=== PATIENT | female | born 1970 | race Caucasian/White ===

== ENCOUNTER → 2022-09-15 08:35 | Outpatient (CLI) | payer OTHER, BC, SELFPAY ==
--- NOTE | ~2022-09-15 | MR_ITS ---
EXAMINATION: MR foot LT wo con DATE: 09/15/2022 09:21 INDICATION: Lateral sided left foot pain and swelling at the second toe TECHNIQUE: Magnetic resonance imaging (MRI) of the left fore/mid foot was performed without intraveno us contrast. Sequences included sagittal T1-weighted FSE, sagittal fluid sensitive FSE STIR, coronal PD-weighted FS FSE, coronal T1-weighted FSE, axial PD-weighted FS FSE, and axial PD-weighted FSE. COMPARISON: None FINDINGS: 35 degree hallux valgus. There appears to be pes planus however specificity is decreased on nonweight bearing imaging. No fracture, stress reaction or pathologic marrow replacing process. Polyarticular o steoarthritis, moderate severity at the second and third tarsal metatarsal joint, mild to moderate se verity at the first metatarsophalangeal joint and mild at the remaining tarsal metatarsal and multipl e interphalangeal joints. Couple likely associated small ganglion cysts the soft tissues plantar to t he second tarsal metatarsal joint. There is prominent soft tissue edema surrounding the second toe an d extending proximally about the distal aspect of the second metatarsal. There is a small joint effus ion at the second metatarsophalangeal joint along with mild thickening and increased signal of the me dial and lateral collateral ligament complex at the second metatarsophalangeal joint. No discrete flu id signal intensity tear of the collateral ligaments and differential would include either partial te ars or more likely other inflammatory process given the bilaterality and additional surrounding infla mmatory changes. This includes increased fluid signal consistent with tenosynovitis extending along t he flexor tendon sheath of the second toe. The flexor and extensor tendons appear otherwise normal. T here is additional soft tissue swelling with subcutaneous edema along the dorsolateral aspect of the mid and forefoot. There is suggestion of a small erosion at the lateral base of the fifth metatarsal. IMPRESSION: 1. Inflammatory changes centered at the second metatarsophalangeal joint including joint effusion, th ickening and increased signal of the medial and lateral collateral ligament complexes and tenosynovit is along the second flexor tendon sheath. Would favor a nonspecific infiltrate etiology which could b e infectious, rheumatic or related to crystal deposition diseases such as gout. 2. Suggestion of a small erosion at the lateral base of the fifth metatarsal with additional surround ing likely reactive edema suggesting inflammatory process with similar differential. Given the oligo articular distribution would favor gout. 3. Mild to moderate polyarticular osteoarthritis in the left fore and midfoot. Reviewed, dictated and finalized at location A. IMPRESSION: 1. Inflammatory changes centered at the second metatarsophalangeal joint includ ing joint effusion, thickening and increased signal of the medial and lateral c ollateral ligament complexes and tenosynovitis along the second flexor tendon s caleb. Would favor a nonspecific infiltrate etiology which could be infectious, rheumatic or related to crystal deposition diseases such as gout. 2. Suggestion of a small erosion at the lateral base of the fifth metatarsal wi th additional surrounding likely reactive edema suggesting inflammatory process with similar differential. Given the oligo articular distribution would favor gout. 3. Mild to moderate polyarticular osteoarthritis in the left fore and midfoot.
== END ==
PROVIDERS: PCP Family Medicine; Visit Provider Podiatrist Foot & Ankle Surgery
DX: M19.072 Primary osteoarthritis, left ankle and foot (principal)
CPT/HCPCS: 73718

== ENCOUNTER 2022-10-24 20:34 | Emergency (ER) | payer OTHER, BC, SELFPAY ==
[2022-10-24] VITALS (7 sets, daily range): BP systolic 110–162; BP diastolic 72–101; PULSE 61–77; RESP 16–18; TEMP 36.4; O2SAT 95–98
--- NOTE | ~2022-10-24 | CT_ITS ---
Non-contrast Head CT History: Headache Technique: Axial non-contrast imaging of the brain was performed. Dose reduction technique was used on this scan by utilizing automated exposure control and iterative reconstruction technique. The dose -length product (DLP) was 605.33 mGy-cm. Findings: There is no evidence of intracranial hemorrhage, mass lesion, or acute infarct. Brain par enchyma appears normal. The ventricles and subarachnoid spaces are normal in size. The calvarium ap pears normal. The visualized paranasal sinuses and mastoid air cells are clear. Impression: No significant abnormality seen. Reviewed, dictated and finalized at location . Impression: No significant abnormality seen.
--- NOTE | ~2022-10-24 | CT_ITS ---
Clinical Indication: Chest pain CT Scan of the Chest with Contrast: Technique: Contiguous sections were acquired throughout the chest after intravenous administration of 100 cc of Omnipaque 350. Dose reduction technique was used on this scan by utilizing automated expos ure control and iterative reconstruction technique. The dose-length product (DLP) was 777.80 mGy-cm. Findings: There is no evidence of any significant mediastinal, hilar or axillary lymphadenopathy. There is no f illing defect in the pulmonary arterial tree to suggest pulmonary embolus. There is no evidence of ao rtic dissection or aneurysm. There is no evidence of pleural or pericardial effusion. The lungs are clear. No pulmonary nodules or infiltrates are noted. Images through the upper abdomen reveal evidence of prior splenectomy. Impression: No evidence of pulmonary embolus, aortic dissection, or aortic aneurysm. Clear lungs. Reviewed, dictated and finalized at [facility]. Impression: No evidence of pulmonary embolus, aortic dissection, or aortic aneurysm. Clear lungs.
--- NOTE | 2022-10-24 20:39 | ED.CHESTPAIN ---
HPI - Chest Pain General Chief Complaint: Chest Pain Stated Complaint: Chest Pain Source: patient Mode of arrival: ambulatory Limitations: no limitations History of Present Illness HPI narrative: Patient is a 52-year-old female with chest pain that started today 30 minutes prior to visit. Her pain is mid substernal in nature and sharp with a pressure-like which radiates to the jaw. She also has shortness of breath and headache. She has family history with early coronary disease and at 59 years of age. There is also brain bleeds early in life. MD complaint: chest pain, chest heaviness and chest discomfort Onset (ago): minute(s) (30) Timing of current episode: constant Prior episodes: No Onset: during rest Pain location: substernal Pain radiation: left arm and jaw/teeth Severity: moderate Pain scale (0-10): 8 Quality: tightness, heaviness and sharp Relieving factors: nothing Exacerbating factors: nothing Treatment prior to arrival: none Risk Factors Coronary artery disease risk factors: diabetes, hyperlipidemia and family history of CAD before age 50 Related Data On Oral Contraceptives: No Home Medications Medication Instructions Recorded Confirmed alprazolam 0.5 mg tablet 0.5 mg 10/24/22 atorvastatin 10 mg tablet 10 mg 10/24/22 celecoxib 100 mg capsule 100 mg 10/24/22 dulaglutide 1.5 mg/0.5 mL 1.5 subcut 10/24/22 subcutaneous pen injector (Trulicity) ixekizumab 80 mg/mL subcutaneous 80 mg subcut 10/24/22 auto-injector (Taltz Autoinjector) levothyroxine 50 mcg tablet 50 mcg 10/24/22 (Synthroid) levothyroxine 75 mcg tablet 75 mcg 10/24/22 (Synthroid) Allergies Allergy/AdvReac Type Severity Reaction Status Date / Time No Known Allergies Allergy Verified 10/24/22 21:27 Review of Systems Review of Systems: All systems reviewed & are unremarkable except as noted in HPI and below Constitutional: Constitutional: Reports no additional constitutional complaints Eyes: Eyes: Reports no additional eye complaints ENT: Reports system reviewed and no additional complaints, except as documented Cardiovascular: Cardiovascular: Reports no additional cardiovascular complaints Respiratory: Respiratory: Reports no additional respiratory complaints Gastrointestinal: Gastrointestinal: Reports no additional gastrointestinal complaints Genitourinary: Genitourinary: Reports no additional female genitourinary complaints Musculoskeletal: Musculoskeletal: Reports no additional musculoskeletal complaints Integumentary/Breasts: Skin/Breast: Reports system reviewed and no additional complaints, except as docu Neurologic: Reports system reviewed and no additional complaints, except as documented Psychiatric: Psychiatric: Reports no additional psychiatric complaints Endocrine: Endocrine: Reports no additional endocrine complaints Hematologic/Lymphatic: Hematologic/Lymphatic: Reports no additional hematologic/lymphatic complaints Allergic/Immunologic: Allergic/Immunologic: Reports no additional allergic/immunologic complaints Exam Const: General: healthy appearing Nutritional Appearance: well nourished HENMT: Head: normal to inspection Ears: external ears normal Eyes: Conjunctivae: conjunctivae normal Pupils: Equal, round and reactive pupils present Neck: Neck: normal visual inspection Chest: Chest palpation & inspection: normal inspection of the chest Resp: Effort & Inspection: normal respiratory effort Auscultation: clear to auscultation bilaterally Cardio: Rate: regular rate Rhythm: regular rhythm GI: Inspection: non-distended GI Palp: Yes Soft to palpation and No Tenderness to palpation present (GI) Auscultation: normal bowel sounds : General: Yes bladder normal to palpation Back/Spine/Pelvis: Back: no CVA tenderness Skin: General skin exam: normal color Rashes: no rashes Neuro: General: patient oriented x3 and moves all extremities Cranial nerves: Yes Nystagmus not
--- NOTE | 2022-10-24 20:46 | ECG_ITS ---
Measurements Intervals [place] Rate: 75 P: 12 IA: 157 QRS: 35 QRSD: 98 T: 48 QT: 405 QTc: 455 Interpretive Statements SINUS RHYTHM NORMAL ECG NO PREVIOUS ECG AVAILABLE FOR COMPARISON Electronically Signed On 10-25-2022 10:19:55 CDT by Sang Lee M.D.
[2022-10-24 21:29] LABS: Hemoglobin 13.7 g/dL (12.0-15.0); Mean Corpuscular HGB Conc 33.4 g/dL (32.0-36.0); Mean Corpuscular Hemoglobin 30.2 pg (27.0-31.0); Mean Corpuscular Volume 90.5 fL (78.0-102.0); Mean Platelet Volume 9.1 fl (9.2-11.8); Platelet Count Result 398 K/mm3 (150-420); Red Blood Count 4.53 M/mm3 (4.20-5.40); Red Cell Distribution Width 16.1 % (11.6-14.4); White Blood Count 15.4 K/mm3 (4.8-10.8)
[2022-10-24 21:40] LABS: Partial Thromboplastin Time 27.3 SEC (23.90-30.70); Prothrombin Time 10.8 Seconds (9.50-12.10)
[2022-10-24 21:48] LABS: Alanine Aminotransferase 42 U/L (14-59); Albumin Level 3.2 g/dL (3.4-5.0); Alkaline Phosphatase 82 U/L (46-116); Anion Gap 6 mmol/L (8-16); Aspartate Amino Transferase 19 U/L (15-37); Bilirubin,Total 0.4 mg/dL (0.00-1.00); Blood Urea Nitrogen 25 mg/dL (7-18); Calcium 8.4 mg/dL (8.5-10.1); Carbon Dioxide 29 mmol/L (21-32); Chloride 105 mmol/L (98-108); Estimated CRCL calculation 64 ml/min; Estimated Glomerular Filt Rate > 60; Glucose 113 mg/dL (70-99); Lipase 50 U/L (16-77); Magnesium 1.9 mg/dL (1.8-2.4); Osmolality Calculated 295 mOsm/kg (285-295); Potassium 3.8 mmol/L (3.5-5.1); Sodium 140 mmol/L (136-145); Total Protein 6.9 g/dL (6.4-8.2); Troponin I 4.5 ng/L (0.00-60.4)
[2022-10-24 22:06] LABS: Band Neutrophils Percent 0 % (0-6); Eosinophils Absolute Manual 0.46 K/mm3 (0.02-0.5); Eosinophils Percent Manual 3 % (1-6); Lymphocytes Absolute Manual 5.39 K/mm3 (1.1-4.5); Lymphocytes Percent Manual 35 % (18-44); Neutrophils Absolute Manual 9.54 K/mm3 (1.7-7.2); Neutrophils Percent Manual 62 % (46-73); Total Cells Counted 100
[2022-10-24 22:07] LABS: Atypical Lymphocytes Present; Giant Platelets Present; Large Platelets Present; Platelet Estimate Adequate (Adequate); Schistocytes None Seen (NORMAL); Smudge Cells PRESENT
[2022-10-24] MEDS: ACETAMINOPHEN 500 MG TABLET 1000 MG PO (22:10)
[2022-10-24 22:30] LABS: Appearance Urine Clear (Clear); Bilirubin Urine Negative (Negative); Blood Urine Trace-Intact (Negative); Color Urine Light Yellow (Yellow); Glucose Urine UA Negative (Negative); Ketones Urine Negative (Negative); Leukocyte Esterase Ur Negative LEU/UL (Negative); Nitrate Urine Negative (Negative); Protein Urine Negative (Negative); Urobilinogen Urine 0.2 mg/dL (0.2-1.0)
[2022-10-24 22:36] LABS: Add Urine Microscopic? YES; Mucus Urine Few /lpf; Squamous Epithelial Cell Urine Few /hpf (Few)
[2022-10-24 22:46] LABS: Amphetamine Screen Urine Negative (Negative); Barbiturate Screen Urine Negative (Negative); Benzodiazepines Screen Urine Positive (Negative); Cannabinoid Screen Urine Positive (Negative); Cocaine Screen Urine Negative (Negative); Methadone Screen Urine Negative (Negative); Opiate Screen Urine Negative (Negative); Phencyclidine Screen Urine Negative (Negative)
[2022-10-24 23:49] LABS: Troponin I 1126.9 ng/L (0.00-60.4)
--- NOTE | 2022-10-24 23:52 | ECG_ITS ---
Measurements Intervals [place] Rate: 72 P: 29 CT: 170 QRS: 15 QRSD: 79 T: 10 QT: 408 QTc: 448 Interpretive Statements SINUS RHYTHM ARTIFACT LIMITS INTERPRETATION NORMAL ECG COMPARED TO ECG 10/24/2022 20:40:09 NO SIGNIFICANT CHANGES Electronically Signed On 10-25-2022 10:20:29 CDT by Sang Lee M.D.
[2022-10-24] MEDS: ASPIRIN 81 MG CHEWABLE TABLET 324 MG PO (23:59)
[2022-10-25] MEDS: NITROGLYCERIN SL 0.4 MG TABLET SUBLINGUAL
[2022-10-25 00:04] VITALS: BP 139/93
[2022-10-25 00:30] VITALS: BP 133/79; PULSE 68; O2SAT 96
[2022-10-25 01:00] VITALS: BP 125/84; PULSE 64; RESP 16; O2SAT 96
[2022-10-25] MEDS: ENOXAPARIN 100 MG/ML SYRINGE 80 MG SUB-Q (01:22)
[2022-10-25 02:07] VITALS: BP 142/89; PULSE 61; RESP 18; O2SAT 97
--- NOTE | 2022-10-25 02:36 | PC.NURSE ---
0236-EMS TRANSPORT SETUP. [employer] OPERATOR CONTACTED [facility]. 0227- REPORT CALLED TO HORACE COHEN ([phone]). TRANSPORT CAN BE SETUP.
[2022-10-25 03:02] VITALS: BP 148/93; PULSE 62; RESP 16
== END 2022-10-25 03:16 | disposition home or self-care (01) ==
PROVIDERS: Emergency Provider Emergency Medicine; PCP Family Medicine
DX: R07.89 Other chest pain (principal); G44.89 Other headache syndrome; E11.9 Type 2 diabetes mellitus without complications; E78.5 Hyperlipidemia, unspecified; Z79.899 Other long term (current) drug therapy
CPT/HCPCS: 36415; 70450; 71275; 80053; 80307; 81001; 83690; 83735; 84484; 85025; 85610; 85730; 93005; 96372; 99284; A9270; J1650; Q9967

== ENCOUNTER 2022-10-25 04:11 | Observation (INO) | payer OTHER, BC, SELFPAY ==
[2022-10-25] VITALS (28 sets, daily range): BP systolic 104–184; BP diastolic 66–98; PULSE 62–84; RESP 14–22; TEMP 35.8–37.6; O2SAT 90–100; BMI 31.3
--- NOTE | 2022-10-25 | ECHO_ITS ---
Patient Info Name: Lyn Medina Age: 52 years : 1970 Gender: Female Ht: 62 in Wt: 171 lbs BSA: 1.87 m2 HR: 68 bpm BP: 153 / 89 mmHg Heart Rhythm: Sinus Rhythm Technical Quality: Fair Exam Date: 10/25/2022 2:47 PM Exam Location: [facility] Patient Status: Outpatient Admit Date: 10/25/2022 Staff Ordering Physician: Ana Cristina Noe DO Lapping Machine Tender: Kate Watts RDCS Attending Provider: Ana Cristina Noe DO Referring Physician: Kusum HORN; Exam Type: CA echo doppler color flow Study Info Indications - STEMI Complete two-dimensional, color flow and Doppler transthoracic echocardiogram is performed. Summary 1. Complete two-dimensional, color flow and Doppler transthoracic echocardiogram is performed. 2. Mild left ventricular hypertrophy with normal systolic function and grade 1 diastolic noncompliance. 3. No valvular dysfunction. 4. No pericardial effusion. Left Ventricle Left ventricular chamber dimension is normal. Left ventricular systolic function is normal, estimated at 50-55%. There is mild concentric increased left ventricular wall thickness. The left ventricular diastolic function is grade I diastolic dysfunction. Right Ventricle Right ventricular chamber dimension is normal. Left Atria Left atrial chamber dimension is normal. Right Atria Right atrial chamber dimension is normal. Aortic Valve The aortic valve is normal. Pulmonic Valve The pulmonic valve is not well visualized. Mitral Valve The mitral valve has normal leaflets. Tricuspid Valve The tricuspid valve leaflets are normal. Pericardium/Pleural The pericardium appears normal. Aorta The aortic root size at the sinus of Valsalva is normal. Left Ventricular Outflow Tract Name Value Normal LVOT 2D LVOT Diameter 2.0 cm LVOT Doppler LVOT Peak Gradient 3 mmHg LVOT Mean Gradient 2 mmHg LVOT VTI 17 cm LVOT VTI/AV VTI Ratio 0.6 LVOT Stroke Volume 50 ml LVOT CO 3.6 l/min LVOT CI 1.9 l/min/m2 Pulmonic Valve Name Value Normal RVOT Doppler RVOT Peak Gradient 1 mmHg PV Doppler PV Peak Gradient 3 mmHg Mitral Valve Name Value Normal MV Doppler MV Decel [place] 393 cm/s2 MV PHT 54 ms MV Area (PHT) 4.1 cm2 4.0-5.0 MV Diastolic Function
--- NOTE | 2022-10-25 04:00 | ADMGEN ---
This patient, Lyn Medina, was admitted to IMU Room 210-01. Patient/family oriented to hospital policies and general routines including ID bracelet, bed and alarms, visiting hours, pain management, procedures, bathroom and other care routines, personal items, smoking policy, room service/diet, and visiting hours. Information on how to activate the Rapid Response Team has been discussed. Patient/Family are encouraged to report perceived risks to care and to ask questions if they do not understand what they are told or what they should do.
--- NOTE | 2022-10-25 04:11 | ECG_ITS ---
Measurements Intervals [place] Rate: 60 P: 6 WV: 173 QRS: 12 QRSD: 93 T: 8 QT: 442 QTc: 444 Interpretive Statements SINUS RHYTHM NORMAL ECG COMPARED TO ECG 10/24/2022 23:57:57 NO SIGNIFICANT CHANGES Electronically Signed On 10-25-2022 10:27:49 CDT by Sang Lee M.D.
--- NOTE | 2022-10-25 04:24 | PM.IMHP ---
H&P: HPI History of Present Illness Date/Time: 10/25/22 04:24 Chief Complaint: Chest pain Narrative: 52-year-old female with a past medical history of psoriasis, type 2 diabetes mellitus, GERD hypothyroidism, obesity and anxiety who presented to the ER at [facility] due to chest pain. The patient reports that she had gotten up to clean the kitchen after dinner. When she is walking in the kitchen she suddenly developed pain that started in the top of her head face and jaw head extended down her neck into her central chest. She reported she felt as if something was sitting on her chest. The pain was an 8/10 in intensity and had no eliciting or relieving factors. The pain lasted for approximately 30 minutes. She denied any radiation of the pain into her shoulders arms or back. She reported that she felt the pain deeply and her jaw and teeth as well as her neck and chest. She has a significant family history of premature coronary artery disease with 1 brother who also had diabetes and heart disease and of sudden cardiac at age 59. She has another brother who has ischemic cardiomyopathy with an EF of 15% who is currently 59 years old. She reports that her cholesterol has historically been low at 110 in that she is on a statin just for prophylactic purposes. She had a stress test many years ago at [place] that was reportedly negative. She re and her have been going to the gym and working out relatively regularly. She is on a lower carbohydrate diet eating 45 carbs per meal and 15 carbs with each snack. She has lost approximately 20 lb with these dietary changes. She does report that she occasionally snores when she has congestion. She does occasionally fall asleep while watching TV and is fatigued a lot of the mornings but does take several medications to help her fall asleep. 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 EKG at the outside ER did not demonstrate any changes. CT troponin initially at the outside ER was 4.6 with repeat greater than a 1000. She told me that her chest pain had resolved by time she got to the ER but evidently she had reported some chest pain to the ER staff because she received nitro at which time her chest pain resolved. She was transferred to our facility for evaluation by Cardiology. She was received 1 dose of Lovenox 1 milligram/kilogram at the outside ER and a full-dose aspirin. The patient reports that her blood pressure was unusually high at the outside ER 162/101. She reports that her blood pressures at home usually are in the 110s to 120s range over 60s to 70s. She does follow with a primary care physician in [place] and Dr. Marcus. Review of Systems Review of Systems: 12 systems were reviewed with pertinent positives and negatives per HPI. Except as documented in the HPI, all other systems were reviewed and are negative. 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
[2022-10-25 04:35] LABS: Hematocrit 40.5 % (37.0-47.0); Hemoglobin 13.3 g/dL (12.0-15.0); Mean Corpuscular HGB Conc 32.8 g/dl (32-36); Mean Corpuscular Volume 91.4 fl (80-100); Platelet Count Result 362 k/mm3 (150-375); Red Blood Count 4.43 M/mm3 (4.2-5.4); Red Cell Distribution Width 16.5 % (11.5-14.5); White Blood Count 15.1 K/mm3 (4.5-10.0)
[2022-10-25] MEDS: SODIUM CHLORIDE 0.9% IV 1,000 ML 100 ML IV CONT ×2 (04:43→19:35)
[2022-10-25 04:45] LABS: Anion Gap 0 mmol/L (8-16); Blood Urea Nitrogen 22 mg/dL (7-17); Calcium 8.3 mg/dL (8.4-10.2); Carbon Dioxide 30 mmol/L (22-30); Chloride 103 mmol/L (98-107); Estimated CRCL calculation 78 ml/min; Estimated Glomerular Filt Rate > 60; Glucose 87 mg/dL (65-110); Potassium 3.8 mmol/L (3.4-5.0); Sodium 133 mmol/L (137-145)
[2022-10-25 05:04] LABS: Band Neutrophils Percent 1 % (0-6); Eosinophils Absolute Manual 1.05 K/mm3 (0.02-0.5); Eosinophils Percent Manual 7 % (0-4); Lymphocytes Absolute Manual 3.32 K/mm3 (1.1-4.5); Metamyelocytes Percent 1 %; Monocytes Percent Manual 6 % (3-9); Myelocytes Percent 1 %; Neutrophils Absolute Manual 9.51 K/mm3 (1.7-7.2); Neutrophils Percent Manual 62 % (46-73); Total Cells Counted 100
[2022-10-25 05:05] LABS: Target Cells 1+ (NORMAL)
[2022-10-25 05:06] LABS: Atypical Lymphocytes Present; Schistocytes None Seen (NORMAL); Smudge Cells PRESENT
[2022-10-25] MEDS: ONDANSETRON INJ 4 MG/2 ML VIAL IV PUSH (08:11)
--- NOTE | 2022-10-25 08:34 | PM.CNCAR ---
Assessment and Plan Assessment and plan (1) Non-STEMI (non-ST elevated myocardial infarction): Code(s): I21.4 - Non-ST elevation (NSTEMI) myocardial infarction Status: Acute Plan This is a 52-year-old lady with history of diabetes who presents to the hospital with rather atypical sounding symptoms and that her pain begins a frontal headache and then radiates down into the throat and into the chest. Her electrocardiogram looks unremarkable but she has had a significant troponin rise. In this setting angiography is recommended and indicated. The procedure in terms of the catheterization risks and details have been explained to the patient and she wishes to proceed. This will be done later today further recommendations of course will be pending those findings Andrea Chaudhry MD [facility] History of Present Illness History of Present Illness Consult date/time: 10/25/22 08:34 Reason For Visit: NSTEMI Narrative: This is a 52-year-old lady I am seeing this morning at the request of the hospitalist because of chest pain and elevated troponin levels. She is not known to me prior to this encounter and she is not known to have heart disease prior to this admission. She states she began to experience episodes of pain yesterday evening while she was at her home. Her history is a bit unusual in that this pain began as a frontal headache and then radiated down into the jaw/neck and down into the substernal region from there. There was mild shortness of breath associated with this but no other symptomatology. She became concerned about the symptoms because of a prevalent family history of coronary disease and went to the emergency room in [place] to be evaluated. Altogether the she thinks the symptoms lasted about 20-30 minutes and then subsided. She did have a elevated troponin and that hospital's emergency room but a normal appearing electrocardiogram. She was transferred here for further evaluation and management. Troponin levels here have been 2.5 and 3.0. She has 3 normal electrocardiograms in the chart and has no other symptoms or complaints at this time. Her chest pain has subsided as mentioned above she does describe a persistent mild frontal headache. She has not had any exertional symptomatology to report she does not exercise in any structured fashion but does lead active lifestyle and does not notice exertional symptoms such as chest pain dyspnea orthopnea PND or edema. She states that her father and 1 of her brothers have passed prior to the age of 55 of myocardial infarctions. Review of Systems Constitutional: Constitutional: Reports no additional constitutional complaints Eyes: Eyes: Reports no additional eye complaints ENT: Reports system reviewed and no additional complaints, except as documented Cardiovascular: Cardiovascular: Reports as per HPI Respiratory: Respiratory: Reports no additional respiratory complaints Gastrointestinal: Gastrointestinal: Reports nausea Musculoskeletal: Musculoskeletal: Reports no additional musculoskeletal complaints Integumentary/Breasts: Skin/Breast: Reports system reviewed and no additional complaints, except as docu Neurologic: Reports system reviewed and no additional complaints, except as documented Endocrine: Endocrine: Reports no additional endocrine complaints Hematologic/Lymphatic: Hematologic/Lymphatic: Reports no additional hematologic/lymphatic complaints Allergic/Immunologic: Allergic/Immunologic: Reports no additional allergic/immunologic complaints PMFSH Past Medical History Medical History (Updated 10/25/22 @ 08:24 by Ana Cristina Noe DO) Anxiety Depression Hypothyroidism Insomnia Obesity Osteoarthritis Psoriasis Type 2 diabetes mellitus The patient reports that her A1c was 5.7 at her most recent doctor visit Surgical History Surgical History (Updated 10/25/22 @ 08:20 by Ana Cristina Noe DO) History of endometrial ablation History o
--- NOTE | 2022-10-25 08:53 | WPDMODSED ---
Moderate Sedation Note-Pt Data Patient Data Diagnosis: acute coronary syndrome/ non ST elevation [place] Present Complaint: neck and chest pain Procedure to be performed/Plan: left heart catheterization Allergies Allergy/AdvReac Type Severity Reaction Status Date / Time No Known Allergies Allergy Verified 10/24/22 21:27 Home Medications Medication Instructions Recorded Confirmed Type atorvastatin 10 mg tablet 10 mg PO DAILY 10/24/22 10/25/22 History celecoxib 100 mg capsule 100 mg PO BID 10/24/22 10/25/22 History dulaglutide 1.5 mg/0.5 mL 1.5 mg subcut WEEKLY 10/24/22 10/25/22 History subcutaneous pen injector (Trulicity) ixekizumab 80 mg/mL subcutaneous 80 mg subcut MONTHLY 10/24/22 10/25/22 History auto-injector (Taltz Autoinjector) levothyroxine 50 mcg tablet 50 mcg PO EVERY OTHER DAY 10/24/22 10/25/22 History (Synthroid) levothyroxine 75 mcg tablet 75 mcg PO EVERY OTHER DAY 10/24/22 10/25/22 History (Synthroid) Calcium + Vitamin D 600 mg PO DAILY 10/25/22 10/25/22 History alprazolam 1 mg tablet 1 mg PO BID PRN Anxiety 10/25/22 10/25/22 History esomeprazole magnesium 40 mg 40 mg PO HS 10/25/22 10/25/22 History capsule,delayed release fluoxetine 40 mg capsule 80 mg PO HS 10/25/22 10/25/22 History magnesium oxide-magnesium amino 1 cap PO DAILY 10/25/22 10/25/22 History acid chelate 300 mg capsule trazodone 100 mg tablet 50 mg PO HS 10/25/22 10/25/22 History Current Medications: Active Medications Acetaminophen (Acetaminophen 325 Mg Tablet) 650 mg PO Q4H PRN PRN Reason: Mild Pain (1-3) or Fever Al Hydrox/Mg Hydrox/Simethicone (Mag Hydrox/Al Hydrox/Simeth 30 Ml Udc) 30 ml PO QID PRN PRN Reason: Dyspepsia Alprazolam (Alprazolam (*Crx) 0.5 Mg Tablet) 1 mg PO BID PRN PRN Reason: Anxiety Aspirin (Aspirin 81 Mg Enteric Tablet) 81 mg PO QAM OMERO Atorvastatin Calcium (Atorvastatin 10 Mg Tablet) 10 mg PO DAILY OMERO Calcium Carbonate (Calcium/Vitamin D 500 Mg Tablet) 500 mg PO QAM ON LICENSE OF [facility] Dextrose (Dextrose 50% 25 Gm/50 Ml Syringe) 12.5 gm IV PUSH PRN PRN; Protocol PRN Reason: Hypoglycemia Fluoxetine HCl (Fluoxetine Hcl 20 Mg Capsule) 80 mg PO HS ON LICENSE OF [facility] Glucagon (Glucagon For Inj 1 Mg Vial) 1 mg IM PRN PRN; Protocol PRN Reason: Hypoglycemia Glucose (Glucose Oral Gel 15 Gm Of Glucse In 37.5 Gm Tube) 15 gm PO PRN PRN; Protocol PRN Reason: Hypoglycemia Sodium Chloride (Normal Saline Iv) 1,000 mls @ 100 mls/hr IV CONT .Q10H ON LICENSE OF [facility] Last Admin: 10/25/22 04:43 Dose: 100 mls/hr Dextrose (Dextrose 5% 1,000 Ml) 1,000 mls @ 100 mls/hr IVPB PRN PRN; Protocol PRN Reason: Hypoglycemia Insulin Aspart (Insulin Aspart (*Bkc) 100 Units/Ml) 2 - 5 units SUB-Q Q6HR OMERO; Protocol Last Admin: 10/25/22 06:20 Dose: Not Given Levothyroxine Sodium (Levothyroxine Sodium 75 Mcg Tablet) 75 mcg PO Q48H ON LICENSE OF [facility] Levothyroxine Sodium (Levothyroxine Sodium 50 Mcg Tablet) 50 mcg PO Q48H ON LICENSE OF [facility] Metoprolol Succinate (Metoprolol Succinate Ext Rel 25 Mg Tabcr) 25 mg PO QAM ON LICENSE OF [facility] Miscellaneous Information (Trazodone 50mg Order, Comments Say She Takes 25mg. Please Clarify Dosage) 1 each XX CLARIFY ON LICENSE OF [facility] Stop: 11/24/22 00:00 Miscellaneous Information (Magnesium Oxide-Mg Aa Chelate 300 Mg Capsule Is Nonformulary. Hold While Hospitalized?) 1 each XX CLARIFY ON LICENSE OF [facility] Stop: 11/24/22 00:00 Non-Formulary Medication (Magnesium Oxide-Mg Aa Chelate) 1 cap PO DAILY ON LICENSE OF [facility] Stop: 11/24/22 08:59 Ondansetron HCl (Ondansetron Inj 4 Mg/2 Ml Vial) 4 mg IV PUSH Q6H PRN PRN Reason: Nausea And Vomiting Last Admin: 10/25/22 08:11 Dose: 4 mg Pantoprazole Sodium (Pantoprazole 40 Mg Tablet) 40 mg PO HS ON LICENSE OF [facility] Perflutren Lipid Microsphere (Perflutren Lipid Microspheres 1.5 Ml Vial Diluted To 10 Ml Total Volume) 0 ml IV PUSH ONCE PRN; Protocol PRN Reason: adequate visualization Stop: 10/27/22 08:20 Trazodone HCl (Trazodone Hcl 50 Mg Tablet) 50 mg PO [facility] Sedation/Anesthesia: No previous sedation/anesthesia problems (including family history). LISA Bowie
[2022-10-25] MEDS: ASPIRIN 81 MG ENTERIC TABLET PO (08:57)
[2022-10-25] MEDS: ATORVASTATIN 10 MG TABLET PO (09:04)
[2022-10-25] MEDS: METOPROLOL SUCCINATE EXT REL 25 MG TABCR PO (09:04)
--- NOTE | 2022-10-25 11:27 | WPDCARDPROC ---
Cardiac Cath Procedure Note Date of procedure:: 10/25/22 Performing physician:: Andrea Chaudhry MD Indication:: Acute coronary syndrome Brief clinical history:: this is a 52-year-old patient without previous history of heart disease she does have history of diabetes and family history of ischemic heart disease. She had an episode of symptoms prompting admission which initiated with a bifrontal headache followed by throat and then central chest pain. Electrocardiograms have been normal however troponin levels are moderately elevated but flat. Procedure Procedure performed:: Coronary angiogram left ventriculogram Sedation/Medication given:: fentanyl 50 mg Versed 2 mg case start time 11:05 a.m. case end 1122 a.m. sedation provided by Beatriz Mendoza RN, trained observer Access site:: right femoral artery Estimated blood loss:: 25 cc Procedure note:: patient brought to the cardiac catheterization lab in the postabsorptive state where the right femoral triangle was prepared and draped the usual fashion. Anesthesia was provided with 1% lidocaine infiltrated locally. Using the modified Seldinger technique 5 [place] sheath was placed into the right femoral artery after this left heart catheterization was performed. Initially a 5 [place] pigtail catheter was used to measure left-sided hemodynamics and to inject LV g 30 degree STEPHENSON projection. Following this standard 5 [place] FL4 catheter was used to engage inject the left coronary artery in multiple projections. A 5 [place] JR4 catheter was used to engage inject the right coronary artery in orthogonal projections. Following this the cineangiograms were reviewed an angiogram was performed of the femoral artery through the sheath after which I determined to have the sheath removed with direct manual compression. Procedure was well tolerated and uncomplicated there were no signs of groin hematoma upon completion of the case. Findings:: Hemodynamics: Central aortic pressure is 144 over 82 left ventricle 1 50 over 2 end-diastolic pressure 15 there is no gradient on pullback across the aortic valve. Left ventricle: The LV is normal in size all segments contract appropriately the global ejection fraction is 50-55% without regional wall motion abnormality. The left main coronary artery is nicely patent the left anterior descending is a medium caliber artery extending down to the apex the LAD and its branches are angiographically normal. The circumflex is a small to medium size artery giving rise to 1 significant marginal branch. The circumflex system is angiographically free of disease. The right coronary artery is large caliber and dominant to the posterior circulation the right coronary artery is smooth and angiographically normal in appearance Conclusion:: 1. right coronary dominant circulation with no angiographic evidence of coronary artery disease 2. normal left ventricular systolic function 3. no angiographic findings which explain patient's elevation of troponin Andrea Chaudhry MD [facility]
[2022-10-25 13:27] LABS: Glucose Point of Care 83 mg/dl (65-105)
--- NOTE | 2022-10-25 14:35 | PM.IMPN ---
Progress Note: A&P Assessment and Plan (1) Non-STEMI (non-ST elevated myocardial infarction): Code(s): I21.4 - Non-ST elevation (NSTEMI) myocardial infarction Status: Acute Assessment and Plan: The patient's labs are consistent with non STEMI and clinical picture supports this. Cardiology has been consulted. Patient received full-dose aspirin as out fact facility as well as therapeutic Lovenox. Start the patient on 25 mg of metoprolol XL daily. Echocardiogram ordered. Troponin trending down. Telemetry monitoring. Cardiac catheterization on 10/25/2022. (2) Type 2 diabetes mellitus: Qualifiers: Diabetes mellitus correction insulin use: without correction use Diabetes mellitus complication status: with circulatory complication Diabetes mellitus complication detail: with other circulatory complications Qualified Code(s): E11.59 - Type 2 diabetes mellitus with other circulatory complications Code(s): E11.9 - Type 2 diabetes mellitus without complications Status: Acute Assessment and Plan: Insulin Lispro sliding scale, Accu-checks qAc and HS and Hold oral hypoglycemics Initiate hypoglycemic precautions Obtain a HgbA1c (3) Hypothyroidism: Qualifiers: Hypothyroidism type: unspecified Qualified Code(s): E03.9 - Hypothyroidism, unspecified Code(s): E03.9 - Hypothyroidism, unspecified Status: Acute Assessment and Plan: Continue levothyroxine. Plan The patient is obese and does have crowded posterior oropharynx and some daytime sleepiness. She would benefit from outpatient polysomnogram to evaluate for possible obstructive sleep apnea. Will order ApneaLink. Subjective Date/time seen: 10/25/22 14:35 Interval history: Patient states that her chest pain, jaw pain and pain radiating down her arm has resolved. She does have residual headache and she says that the headache is over the whole top of her head. She did have some nausea as well but it was relieved with Zofran. Patient planned to have cardiac catheter today. Pending on cardiac catheterization results will make plan for her. Cardiology following appreciate their recommendations. Review of Systems Review of Systems: All systems reviewed & are unremarkable except as noted in HPI and below Exam Narrative: GENERAL: Comfortable, no acute distress HENMT: moist mucous membranes EYES: EOM intact b/l NECK: no lymphadenopathy RESPIRATORY: clear to auscultation CARDIO: RRR GI: soft, nontender, bowel sounds present SKIN: no rashes EXTREMITIES: no edema, redness or tenderness Objective Data Vital Signs Vital Signs: Vital Signs - 24 hr 10/25/22 04:00 10/25/22 04:00 10/25/22 04:00 Temperature 97.1 F L Pulse Rate 65 64 Respiratory Rate 16 Blood Pressure 136/95 H Pulse Oximetry 98 98 Oxygen Delivery Room Air 10/25/22 06:00 10/25/22 07:49 10/25/22 09:04 Temperature 97.1 F L Pulse Rate 63 66 66 Respiratory Rate 17 Blood Pressure 153/89 H Pulse Oximetry 97 Oxygen Delivery 10/25/22 08:00 10/25/22 11:30 10/25/22 11:35 Temperature 97.1 F L Pulse Rate 66 69 71 Respiratory Rate 17 15 16 Blood Pressure 153/89 H 125/66 133/83 Pulse Oximetry 97 94 94 Oxygen Delivery Room Air Room Air 10/25/22 11:45 10/25/22 11:50 10/25/22 11:40 Temperature Pulse Rate 65 66 68 Respiratory Rate 16 16 16 Blood Pressure 118/78 104/86 104/86 Pulse Oximetry 92 93 93 Oxygen Delivery Room Air Room Air Room Air 10/25/22 11:55 10/25/22 12:00 10/25/22 12:15 Temperature Pulse Rate 63 67 68 Respiratory Rate 14 16 18 Blood Pressure 113/77 115/81 127/75 Pulse Oximetry 93 94 94 Oxygen Delivery Room Air Room Air Room Air 10/25/22 12:30 10/25/22 12:05 10/25/22 12:45 Temperature Pulse Rate 62 65 64 Respiratory Rate 18 15 16 Blood Pressure 124/80 120/85 110/81 Pulse Oximetry 94 95 93 Oxygen Delivery Room Air Room Air Room Air
[2022-10-25] MEDS: SODIUM CHLORIDE 0.9% IV 1,000 ML 125 ML IV CONT (16:13)
[2022-10-25 16:58] LABS: Glucose Point of Care 88 mg/dl (65-105)
[2022-10-25] MEDS: ALPRAZolam (*CRX) 0.5 MG TABLET 1 MG PO (21:01)
[2022-10-25] MEDS: FLUoxetine HCL 20 MG CAPSULE 80 MG PO (21:02)
[2022-10-25] MEDS: PANTOPRAZOLE 40 MG TABLET PO (21:02)
[2022-10-26] VITALS (10 sets, daily range): BP systolic 125–143; BP diastolic 75–103; PULSE 66–77; RESP 17–20; TEMP 36.1–36.9; O2SAT 97–99
[2022-10-26] MEDS: SODIUM CHLORIDE 0.9% IV 1,000 ML 100 ML IV CONT ×2 (00:02→03:54)
[2022-10-26] MEDS: LEVOTHYROXINE SODIUM 75 MCG TABLET PO (05:09)
[2022-10-26] MEDS: LEVOTHYROXINE SODIUM 50 MCG TABLET PO (05:09)
[2022-10-26 08:39] LABS: Basophils Percent Auto 0.3 % (0.2-1.2); Eosinophils Absolute Auto 0.4 K/mm3 (0-0.3); Eosinophils Percent Auto 2.6 % (0-4.4); Hematocrit 42.6 % (37.0-47.0); Hemoglobin 13.9 g/dL (12.0-15.0); Immature Granulocyte Absolute 0.05 K/mm3 (0.00-0.031); Immature Granulocyte Percent A 0.4 % (0-0.5); Lymphocytes Percent Auto 22.7 % (18.3-44.2); Mean Corpuscular HGB Conc 32.6 g/dl (32-36); Mean Corpuscular Hemoglobin 30.3 pg (26-34); Mean Corpuscular Volume 92.8 fl (80-100); Monocytes Percent Auto 7.2 % (2.6-8.5); Neutrophils Absolute Auto 9.4 K/mm3 (1.3-6.7); Neutrophils Percent Auto 66.8 % (45.5-73.1); Platelet Count Result 382 k/mm3 (150-375); Red Blood Count 4.59 M/mm3 (4.2-5.4); Red Cell Distribution Width 16.5 % (11.5-14.5); White Blood Count 14.1 K/mm3 (4.5-10.0)
[2022-10-26] MEDS: ATORVASTATIN 10 MG TABLET PO (08:39)
[2022-10-26] MEDS: ASPIRIN 81 MG ENTERIC TABLET PO (08:39)
[2022-10-26] MEDS: METOPROLOL SUCCINATE EXT REL 25 MG TABCR PO (08:43)
[2022-10-26 08:50] LABS: Hemoglobin A1C 5.5 % (<5.7)
[2022-10-26 08:51] LABS: Alanine Aminotransferase 50 U/L (6-35); Albumin Level 3.8 g/dL (3.5-5.1); Alkaline Phosphatase 64 U/L (38-126); Anion Gap 4 mmol/L (8-16); Aspartate Amino Transferase 57 U/L (14-36); Bilirubin,Total 0.8 mg/dL (0.2-1.3); Blood Urea Nitrogen 12 mg/dL (7-17); Calcium 8.6 mg/dL (8.4-10.2); Carbon Dioxide 29 mmol/L (22-30); Chloride 102 mmol/L (98-107); Estimated CRCL calculation 78 ml/min; Estimated Glomerular Filt Rate > 60; Glucose 117 mg/dL (65-110); Potassium 4.2 mmol/L (3.4-5.0); Sodium 135 mmol/L (137-145)
--- NOTE | 2022-10-26 10:50 | PM.PNCARD ---
Progress Note: A&P Assessment and Plan (1) Chest pain: Code(s): R07.9 - Chest pain, unspecified Status: Acute Plan 52-year-old lady with episode of atypical symptomatology troponin level is elevated and I do not have a specific explanation for that. He does not have any coronary disease and does not have any findings on her LV g consistent with takotsubo cardiomyopathy. Believe he is otherwise clinically stable for discharge today. She says she had an echocardiogram done at her discharge is pending those results. That will not be read until I get up to the [facility] sometime today after am finish making rounds. Andrea Chaudhry MD [facility] Subjective Date/time seen: Date of service: 10/26/22 10:50 Interval history: Follow-up visit in this 52-year-old lady with: Episode of his symptoms that are rather unusual for ischemia starting with a bifrontal headache with then pain radiating into the neck and into the chest. Because of elevated troponin ACS was the working diagnosis however diagnostic angiography yesterday was unremarkable. She feels well this morning and does not have any symptoms. Exam Const: General: comfortable and no acute distress Other: Pleasant overweight lady no distress HENMT: Mouth: Yes moist mucous membranes Eyes: Sclera: sclerae normal Neck: Neck: supple and no JVD Resp: Effort & Inspection: normal respiratory effort Auscultation: clear to auscultation bilaterally Cardio: Rate: regular rate Rhythm: regular rhythm Other: No murmur no gallop no rub GI: GI Palp: Yes Soft to palpation Auscultation: normal bowel sounds Skin: General skin exam: normal color Neuro: Other: Alert and oriented x3 Objective Data Vital Signs Vital Signs: Vital Signs - 24 hr 10/25/22 11:30 10/25/22 11:35 10/25/22 11:45 Temperature Pulse Rate 69 71 65 Respiratory Rate 15 16 16 Blood Pressure 125/66 133/83 118/78 Pulse Oximetry 94 94 92 Oxygen Delivery Room Air Room Air Room Air 10/25/22 11:50 10/25/22 11:40 10/25/22 11:55 Temperature Pulse Rate 66 68 63 Respiratory Rate 16 16 14 Blood Pressure 104/86 104/86 113/77 Pulse Oximetry 93 93 93 Oxygen Delivery Room Air Room Air Room Air 10/25/22 12:00 10/25/22 12:15 10/25/22 12:30 Temperature Pulse Rate 67 68 62 Respiratory Rate 16 18 18 Blood Pressure 115/81 127/75 124/80 Pulse Oximetry 94 94 94 Oxygen Delivery Room Air Room Air Room Air 10/25/22 12:05 10/25/22 12:45 10/25/22 13:00 Temperature Pulse Rate 65 64 63 Respiratory Rate 15 16 17 Blood Pressure 120/85 110/81 123/87 Pulse Oximetry 95 93 95 Oxygen Delivery Room Air Room Air Room Air 10/25/22 13:13 10/25/22 13:58 10/25/22 14:28 Temperature 35.8 C L 36.7 C 36.1 C L Pulse Rate 66 63 63 Respiratory Rate 22 H 17 18 Blood Pressure 117/91 H 119/79 184/86 H Pulse Oximetry 98 97 98 Oxygen Delivery 10/25/22 15:28 10/25/22 16:00 10/25/22 17:00 Temperature 36.9 C 37.6 C H 35.8 C L Pulse Rate 66 84 65 Respiratory Rate 17 17 18 Blood Pressure 137/87 149/85 H 122/81 Pulse Oximetry 99 90 95 Oxygen Delivery 10/25/22 14:00 10/25/22 18:00 10/25/22 20:00 Temperature 36.3 C L Pulse Rate 63 74 72 Respiratory Rate 20 Blood Pressure 134/98 H Pulse Oximetry 100 Oxygen Delivery 10/25/22 20:00 10/25/22 22:00 10/25/22 23:08 Temperature 36.4 C Pulse Rate 66 65 72 Respiratory Rate 20 Blood Pressure 129/74 Pulse Oximetry 100 Oxygen Delivery 10/26/22 00:00 10/26/22 02:00 10/26/22 02:47 Temperature Pulse Rate 68 67 Respiratory Rate Blood Pressure Pulse Oximetry 97 Oxygen Delivery 10/26/22 03:52 10/26/22 04:00 10/26/22 05:59 Temperature 36.3 C L Pulse Rate 67 68 66 Respiratory Rate 20 Blood Pressure 143/88 H Pulse Oximetry 99 Oxygen Delivery 10/26/22 07:44 10/26/22 08:43 10/26/22 09:32 Temperature 36.8 C 36.1 C L Pulse Rate 77 73 68 Respiratory Rat
[2022-10-26 12:34] LABS: Glucose Point of Care 144 mg/dl (65-105)
--- NOTE | 2022-10-26 13:01 | PM.DS ---
DS: Admitting Diagnosis Discharge Date 10/26/22 Admitting Diagnosis Elevated troponins DS: Discharge Diagnosis Discharge Diagnosis (1) Non-STEMI (non-ST elevated myocardial infarction): Code(s): I21.4 - Non-ST elevation (NSTEMI) myocardial infarction Status: Acute (2) Type 2 diabetes mellitus: Qualifiers: Diabetes mellitus complication detail: with other circulatory complications Diabetes mellitus complication status: with circulatory complication Diabetes mellitus fpc insulin use: without intermission coordinator use Qualified Code(s): E11.59 - Type 2 diabetes mellitus with other circulatory complications Code(s): E11.9 - Type 2 diabetes mellitus without complications Status: Acute (3) Hypothyroidism: Qualifiers: Hypothyroidism type: unspecified Qualified Code(s): E03.9 - Hypothyroidism, unspecified Code(s): E03.9 - Hypothyroidism, unspecified Status: Acute Assessment and Plan: DS: Summary Hospital Course Hospital Course: This is a 52-year-old female with past medical history of psoriasis, type 2 diabetes, GERD, hypothyroidism and obesity the presented to the ER at [facility] on 10/24/2022.due to acute chest pain. She was found to have elevated troponin and was a direct admit here. Troponin was elevated at 1100. and Cardiology was consulted. Patient had radiating pain in her jaw and neck. She has a significant family history of premature coronary artery disease. due to patient's elevated troponins and symptoms patient underwent cardiac catheterization on 10/25/2022. Cardiac catheterization the not reveal any acute findings. Patient also had echocardiogram revealing EF of 50-55% and grade 1 diastolic dysfunction. Patient's chest pain symptoms has resolved. Her labs and vital signs are stable and she is medically cleared to discharge by both the hospitalist and Cardiology. Time Spent with Patient Time attestation: Total time spent providing and/or coordinating discharge services: Exam Narrative: GENERAL: Comfortable, no acute distress HENMT: moist mucous membranes EYES: EOM intact b/l NECK: no lymphadenopathy RESPIRATORY: clear to auscultation CARDIO: RRR GI: soft, nontender, bowel sounds present SKIN: no rashes EXTREMITIES: no edema, redness or tenderness DS: Data Data Completed and Pending Labs on day of discharge: Labs from last 24 hours 10/26/22 10/26/22 10/25/22 11:53 08:31 16:54 WBC 14.1 H RBC 4.59 Hgb 13.9 Hct 42.6 MCV 92.8 MCH 30.3 MCHC 32.6 RDW 16.5 H Plt Count 382 H MPV 9.0 Immature Gran % (Auto) 0.4 Neut % (Auto) 66.8 Lymph % (Auto) 22.7 [place] % (Auto) 7.2 Eos % (Auto) 2.6 Baso % (Auto) 0.3 Lymph # (Auto) 3.20 [place] # (Auto) 1.0 H Eos # (Auto) 0.4 H Baso # (Auto) 0.0 Abs Immat Gran (auto) 0.05 H Absolute Neuts (auto) 9.4 H Absolute Nucleated RBC 0.0 Nucleated RBC % 0.0 Sodium 135 L Potassium 4.2 Chloride 102 Carbon Dioxide 29 Anion Gap 4 L BUN 12 D Creatinine 0.70 Estim Creat Clear Calc 78 Estimated GFR > 60 Glucose 117 H POC Capillary Glucose 144 H 88 Hemoglobin A1c 5.5 Calcium 8.6 Total Bilirubin 0.8 AST 57 H ALT 50 H Alkaline Phosphatase 64 Total Protein 7.0 Albumin 3.8 10/25/22 13:24 WBC RBC Hgb Hct MCV MCH MCHC RDW Plt Count MPV Immature Gran % (Auto) Neut % (Auto) Lymph % (Auto) [place] % (Auto) Eos % (Auto) Baso % (Auto) Lymph # (Auto) [place] # (Auto) Eos # (Auto) Baso # (Auto) Abs Immat Gran (auto) Absolute Neuts (auto) Absolute Nucleated RBC Nucleated RBC % Sodium Potassium Chloride Carbon Dioxide Anion Gap BUN Creatinine Estim Creat Clear Calc Estimated GFR Glucose POC Capillary Glucose 83 Hemoglobin A1c Calcium Total Bilirubin AST ALT Alkaline Phosphatase Total Protein Albumin Dischar
== END 2022-10-26 16:01 | disposition home or self-care (01) ==
PROVIDERS: Internal Medicine Critical Care Medicine; Specialist; Admitting Provider Internal Medicine; PCP Family Medicine; Visit Provider Family Medicine
PROC: 4A023N7 Measurement of Cardiac Sampling and Pressure, Left Heart, Percutaneous Approach (ICD-10-PCS; CPT 93452; principal; 2022-10-25 11:30)
DX: I21.4 Non-ST elevation (NSTEMI) myocardial infarction (principal); R77.8 Other specified abnormalities of plasma proteins; E11.59 Type 2 diabetes mellitus with other circulatory complications; E03.9 Hypothyroidism, unspecified; R53.83 Other fatigue; R51.9 Headache, unspecified; G47.00 Insomnia, unspecified; F41.9 Anxiety disorder, unspecified; F32.A Depression, unspecified; R79.89 Other specified abnormal findings of blood chemistry; K21.9 Gastro-esophageal reflux disease without esophagitis; E66.3 Overweight; M19.90 Unspecified osteoarthritis, unspecified site; E83.51 Hypocalcemia; E87.1 Hypo-osmolality and hyponatremia; L40.9 Psoriasis, unspecified; E66.8 Other obesity; Z68.31 Body mass index [BMI] 31.0-31.9, adult; F10.90 Alcohol use, unspecified, uncomplicated; F12.90 Cannabis use, unspecified, uncomplicated; Z79.85 Long-term (current) use of injectable non-insulin antidiabetic drugs; Z79.899 Other long term (current) drug therapy; Z82.49 Family history of ischemic heart disease and other diseases of the circulatory system; Z83.3 Family history of diabetes mellitus
CPT/HCPCS: 36415; 80048; 80053; 82948; 83036; 84484; 85025; 93005; 93306; 93458; 94762; 96374; A9270; C1887; C1894; G0378; G0379; J1644; J2250; J2405; J3010; J7030

== ENCOUNTER 2022-11-15 15:35 | Outpatient (CLI) | payer OTHER, BC, SELFPAY ==
--- NOTE | ~2022-11-15 | US_ITS ---
EXAMINATION: US venous doppler E DATE: 11/15/2022 16:05 INDICATION: Left upper limb swelling TECHNIQUE: Grayscale images without and with compression and Doppler images of the left upper extremi ty veins were obtained. COMPARISON: None. FINDINGS: The left internal jugular vein, subclavian vein, axillary vein, brachial vein, basilic vein, radial vein,, ulnar vein and cephalic vein at the upper arm are patent. Noncompressible thrombosis of the mo re distal left cephalic vein at the forearm. IMPRESSION: 1. Thrombosis of the distal left cephalic vein at the forearm. Reviewed, dictated and finalized at location A.
[2022-11-15 17:08] LABS: Alanine Aminotransferase 52 U/L (14-59); Albumin Level 3.2 g/dL (3.4-5.0); Alkaline Phosphatase 75 U/L (46-116); Anion Gap 6 mmol/L (8-16); Aspartate Amino Transferase 30 U/L (15-37); Bilirubin,Total 0.4 mg/dL (0.00-1.00); Blood Urea Nitrogen 14 mg/dL (7-18); Calcium 8.9 mg/dL (8.5-10.1); Carbon Dioxide 31 mmol/L (21-32); Chloride 104 mmol/L (98-108); Estimated Glomerular Filt Rate > 60; Glucose 74 mg/dL (70-99); Osmolality Calculated 291 mOsm/kg (285-295); Potassium 4.6 mmol/L (3.5-5.1); Sodium 141 mmol/L (136-145); Total Protein 6.8 g/dL (6.4-8.2)
[2022-11-19 03:42] LABS: Hepatitis A Antibody IgM Nonreactive; Hepatitis B Core Antibody Nonreactive (Nonreactive); Hepatitis B Surface Antigen Nonreactive (Nonreactive); Hepatitis C Virus Antibody Nonreactive
== END 2022-11-15 15:36 | disposition home or self-care (01) ==
LOC: CHSIMG 15:40
PROVIDERS: PCP Family Medicine; Visit Provider Physician Assistant
DX: I82.612 Acute embolism and thrombosis of superficial veins of left upper extremity (principal); M79.89 Other specified soft tissue disorders; R79.89 Other specified abnormal findings of blood chemistry
CPT/HCPCS: 36415; 80053; 80074; 85380; 93971

== ENCOUNTER 2022-11-16 08:45 | Outpatient (CLI) | payer OTHER, BC, SELFPAY ==
--- NOTE | ~2022-11-16 | US_ITS ---
US venous doppler LE RT DATE: 11/16/2022 09:33 INDICATION: Right leg pain TECHNIQUE: Real-time and color flow imaging and Doppler analysis of the veins of the right lower extr emity COMPARISON: None FINDINGS: The right greater saphenous vein is patent. There is spontaneous and phasic flow and normal augmentation and color flow signal and normal kiran andrew of the deep veins of the right lower extremity. There is no evidence of deep venous thrombosis. IMPRESSION: No evidence of deep venous thrombus of right lower extremity Reviewed, dictated and finalized at Location [facility]. Reviewed, dictated and finalized at location L.
[2022-11-16 09:40] LABS: Basophils Absolute Auto 0.05 K/mm3 (0.00-0.10); Basophils Percent Auto 0.4 % (0.0-1.0); Eosinophils Absolute Auto 0.33 K/mm3 (0.02-0.50); Eosinophils Percent Auto 2.6 % (1.0-6.0); Hematocrit 41.3 % (35.0-49.0); Hemoglobin 13.7 g/dL (12.0-15.0); Immature Granulocyte Absolute 0.06 K/mm3 (0.00-0.00); Immature Granulocyte Percent A 0.5 % (0.0-0.0); Lymphocytes Absolute Auto 3.01 K/mm3 (1.10-4.50); Lymphocytes Percent Auto 24.1 % (18.0-42.0); Mean Corpuscular HGB Conc 33.2 g/dL (32.0-36.0); Mean Corpuscular Hemoglobin 30.5 pg (27.0-31.0); Monocytes Absolute Auto 0.99 K/mm3 (0.10-0.90); Monocytes Percent Auto 7.9 % (2.0-11.0); Neutrophils Absolute Auto 8.1 K/mm3 (1.7-7.2); Neutrophils Percent Auto 64.5 % (50.0-70.0); Platelet Count Result 361 K/mm3 (150-420); Red Blood Count 4.49 M/mm3 (4.20-5.40); Red Cell Distribution Width 15.9 % (11.6-14.4); White Blood Count 12.5 K/mm3 (4.8-10.8)
[2022-11-16 09:55] LABS: Partial Thromboplastin Time 26.5 SEC (23.90-30.70); Prothrombin Time 10.6 Seconds (9.50-12.10)
[2022-11-19 06:22] LABS: Lupus dRVVT Screen 35 sec (<=45); PTT-LA Screen 30 sec (<=40)
[2022-11-19 12:55] LABS: Fibrinogen 199 mg/dL (175-425)
[2022-11-21 18:28] LABS: Factor V (Leiden) Mutation NEGATIVE
== END 2022-11-16 08:46 | disposition home or self-care (01) ==
PROVIDERS: PCP Family Medicine; Visit Provider Physician Assistant
DX: M79.89 Other specified soft tissue disorders (principal)
CPT/HCPCS: 36415; 81241; 85025; 85384; 85610; 85613; 85730; 93971

== ENCOUNTER 2023-03-17 11:16 | Outpatient (CLI) | payer OTHER, BC, SELFPAY ==
--- NOTE | 2023-03-31 14:11 | WPDSLEEPSTUD ---
Sleep Study Date of Study: 03/17/23 Ordering Provider: Sean Ocampo APRN Interpreting Physician: Candelaria Packer MD Sleep Study Type: Split Polysomnogram Height: 1.57 m Weight: 79.379 kg Body Mass Index: 32.0 Neck Circumference (inches): 15 [place]: 14 Reason for Sleep Study Hypersomnolence Sleep History Lyn Medina is a 53-year-old woman with hypersomnolence. She indicates on her sleep questionnaire that she has large tonsils, and a large neck size. She rarely awakens from sleep short of breath. She frequently wakes at night with heartburn, belching or coughing.??She rarely snores, only when she is sick or congested. She never snores loudly enough that others complain about it. There is a family history of sleep issues, her brother has worn CPAP. She constantly wakes up gasping for breath during the night. She never has breathing problems at night. She never sweats excessively at night. She occasionally notices her heart pounding or beating irregularly during the night. She occasionally falls asleep during the day. She occasionally falls asleep involuntarily, never falls asleep while driving. She never experiences loss of muscle tone with strong emotion. She never feels paralyzed on waking or falling asleep. She never experiences vivid dreams upon waking or falling asleep. She never feels afraid of going to sleep. She never has nightmares. She never recalls her dreams. She rarely has thoughts racing through her mind. She rarely feels sad or depressed. She occasionally feels anxiety. She frequently notices parts of her body jerk. She frequently kicks during the night. She rarely feels crawling or aching feelings in her legs. She rarely feels leg pain at night. She never has morning jaw pain, and occasionally grinds her teeth at night. She occasionally feels bothered by pain during the day, is never awakened by pain during the night. She occasionally wakes up feeling stiff in the morning, rarely wakes feeling sore or achy in the morning. She rarely awakens with pain in her neck, spine, or joints. she reports memory problems and concentration difficulties. Normal bedtime is between 10:00 p.m. and 10:30 p.m., falling asleep quickly, waking in frequently at night, sometimes wakes to take medications. When she wakes she tries to rest and return to sleep. Sometimes this can take an hour. Her normal wake time is 6:30 a.m.. On weekends, bedtime is later, between 11:00 p.m. and 12 midnight, wake time is between 8:00 a.m. and 8:30 a.m.. She does not generally take naps in the afternoon or evening. A short nap is not refreshing. She is often drowsy for 3 hours or longer after waking. She feels better in the evening compared to other times of day. Habits:??Tobacco: never smoker Caffeine: 2 servings per day. 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
[2023-03-31 14:12] VITALS: BMI 32.0
== END 2023-03-18 06:20 | disposition home or self-care (01) ==
LOC: ANHCSM 11:17
PROVIDERS: Visit Provider Nurse Practitioner Family
DX: G47.00 Insomnia, unspecified (principal); G47.33 Obstructive sleep apnea (adult) (pediatric); G47.61 Periodic limb movement disorder
CPT/HCPCS: 95811

== ENCOUNTER 2023-04-13 08:59 | Outpatient (CLI) | payer OTHER, BC, SELFPAY | END 2023-04-13 09:00 | disposition home or self-care (01) | LOC: ANHLAB 09:01 | PROVIDERS: Visit Provider Nurse Practitioner Family | DX: G47.61 Periodic limb movement disorder (principal) | CPT/HCPCS: 36415; 82728 ==

== ENCOUNTER 2024-07-03 11:27 | Emergency (ER) | payer OTHER, BC, SELFPAY ==
[2024-07-03] VITALS (10 sets, daily range): BP systolic 90–151; BP diastolic 58–91; PULSE 72–96; RESP 18; TEMP 36.4; O2SAT 92–100
--- NOTE | ~2024-07-03 | CT_ITS ---
EXAMINATION: CT abdomen pelvis w con DATE: 07/03/2024 12:48 INDICATION: Abdominal pain TECHNIQUE: Computed tomography (CT) of the abdomen and pelvis was performed with 100 mL Omnipaque-350 intravenous contrast. Automated exposure control and iterative reconstruction technique were employe d. The dose-length product was 424.55 mGy-cm. COMPARISON: None FINDINGS: Mild dependent atelectasis in the right lower lobe. Heart size is normal. No pericardial or pleural e ffusion. Small sliding-type hiatal hernia. Status post splenectomy with several surgical clips at the splenic fossa. Liver, gallbladder, pancreas and bilateral adrenal glands are normal. 6 mm relatively low-attenuation left renal lesion most likely a cyst but too small to definitively characterize. The re are small densities within both kidneys, the largest on the left measuring 3 mm consistent with no nobstructing nephrolithiasis. No evident ureteral stones or hydronephrosis. Bladder is normal. Bilate ral adnexa are unremarkable. A few nabothian cysts measuring up to 1 cm the cervix. There is suggesti on of a possible septate uterus with small left-sided and larger right-sided uterine horns there are few scattered clonic diverticula without adjacent inflammatory stranding to suggest diverticulitis. T here is mild colonic wall thickening centered at the splenic flexure the colon and could not exclude a mild focal colitis. Small bowel and appendix are normal. No free intraperitoneal gas or fluid. No p athologically enlarged abdominal or pelvic lymphadenopathy. Mild lumbar dextrocurvature and mild thor acolumbar levocurvature with moderate spondylosis. IMPRESSION: 1. Mild colonic wall thickening centered at the splenic flexure the colon suspicious for multifocal c olitis which could be infectious, inflammatory or ischemic (including hypotensive) in etiology. 2. Bilateral nonobstructing nephrolithiasis. 3. Mild diverticulosis. 4. Small sliding-type hiatal hernia. 5. Suggestion of normal anatomic variant septate uterus. Reviewed, dictated and finalized at location A. IMPRESSION: 1. Mild colonic wall thickening centered at the splenic flexure the colon suspi cious for multifocal colitis which could be infectious, inflammatory or ischemi c (including hypotensive) in etiology. 2. Bilateral nonobstructing nephrolithiasis. 3. Mild diverticulosis. 4. Small sliding-type hiatal hernia. 5. Suggestion of normal anatomic variant septate uterus.
--- NOTE | 2024-07-03 11:41 | PC.NURSE ---
PT IS NOTED BE STICKING HER FINGERS DOWN HER THROAT, WHEN WHY SHE IS DOING THIS BECAUSE I HAVE TO FUCKING PUKE. PT REPORTS SHE IS SHAKING ON THE INSIDE AND NEEDS MORE MEDICATION FOR PAIN. ERP IS AWARE.
[2024-07-03] MEDS: PROCHLORPERAZINE EDISYLATE 10 MG/2 ML VIAL IV PUSH (11:50)
[2024-07-03 11:52] LABS: Hematocrit 42.3 % (35.0-49.0); Hemoglobin 14.8 g/dL (12.0-15.0); Mean Corpuscular Hemoglobin 31.8 pg (27.0-31.0); Mean Platelet Volume 9.4 fl (9.2-11.8); Platelet Count Result 318 K/mm3 (150-420); Red Blood Count 4.65 M/mm3 (4.20-5.40); White Blood Count 14.9 K/mm3 (4.8-10.8)
[2024-07-03] MEDS: LORazepam INJ (*CRX) 2 MG/ML VIAL 1 MG IV PUSH (11:53)
[2024-07-03] MEDS: SODIUM CHLORIDE 0.9% IV 1,000 ML 999 ML IV CONT ×2 (11:54→13:51)
--- NOTE | 2024-07-03 12:09 | PC.NURSE ---
pt is sitting up on stretcher talking with son and at this time.pt is awaiting results. will continue to monitor. pt has ivf infusing as ordered without difficulty.
[2024-07-03 12:12] LABS: Alanine Aminotransferase 95 U/L (14-59); Albumin Level 3.9 g/dL (3.4-5.0); Alkaline Phosphatase 95 U/L (46-116); Anion Gap 16 mmol/L (4-12); Aspartate Amino Transferase 79 U/L (15-37); Bilirubin,Total 1.2 mg/dL (0.00-1.00); Blood Urea Nitrogen 21 mg/dL (7-18); Calcium 9.5 mg/dL (8.5-10.1); Carbon Dioxide 21 mmol/L (21-32); Chloride 100 mmol/L (98-108); Estimated CRCL calculation 48 ml/min; Estimated Glomerular Filt Rate 53; Glucose 195 mg/dL (70-99); Osmolality Calculated 292 mOsm/kg (285-295); Potassium 4.1 mmol/L (3.5-5.1); Sodium 137 mmol/L (136-145); Total Protein 7.9 g/dL (6.4-8.2)
[2024-07-03 12:21] LABS: Band Neutrophils Percent 0 % (0-6); Lymphocytes Absolute Manual 1.19 K/mm3 (1.1-4.5); Lymphocytes Percent Manual 8 % (18-44); Monocytes Absolute Manual 0.29 K/mm3 (0.1-0.90); Monocytes Percent Manual 2 % (3-9); Neutrophils Absolute Manual 13.41 K/mm3 (1.7-7.2); Neutrophils Percent Manual 90 % (46-73); Platelet Estimate Adequate (Adequate); Total Cells Counted 100
[2024-07-03 12:23] LABS: Add Urine Microscopic? NO; Appearance Urine Clear (Clear); Bilirubin Urine Negative (Negative); Blood Urine Trace-intact (Negative); Color Urine Light Yellow (Yellow); Glucose Urine UA 1+ (Negative); Ketones Urine 2+ (Negative); Leukocyte Esterase Ur Negative LEU/UL (Negative); Nitrate Urine Negative (Negative); Protein Urine Negative (Negative); Urobilinogen Urine 0.2 mg/dL (0.2-1.0)
[2024-07-03 12:24] LABS: Lactic Acid Reflex 6.7 mmol/L (0.4-2.0)
--- OUTSIDE RECORDS SUMMARY | 2024-07-03 12:44 | XMS_ITS | Encounter Summary ---
Author Organization [facility] Address [address] [place] [address] Phone Care Team Providers Care Game Programer Name Role Phone Yuliana Marcus MD Primary Care Provider Tyesha Genao Unavailable [phone] Encounter Details Date Type Department Care Team (Late st Contact Info) Description 03/04/2020 Orders Only [facility] Scanning, Provider Social History Tobacco Use Types Packs/Day Years Used Date Smoking Tobacco: Never Smokeless Tobacco: Never Alcohol Use Standard Drinks/Week Comments Yes 0 (1 standard drink = 0.6 oz pur e alcohol) occ Comments Unknown Sex and Gender Information Value Date Recorded Sex Assigned at Not on file Legal Sex Female 12:26 AM 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[employer] GENERATOR Gender Identity Not on file Sexual Orientation Not on file documented as of this encounter Plan of Treatment Not on file documented as of this encounter Procedures Procedure Name Priority Date/Time Associated Diagnosis Comments SCAN - LABS 03/04/2020 documented in this encounter Results * SCAN - LABS (03/04/2020) us Provider Scanning Final Result documented in this encounter Visit Diagnoses Not on filedocumented in this encounter Care Teams Game Programer Relationship Specialty Start Date End Date Yuliana Marcus MD [address] [place] [address] PCP - General 07/23/16 Tyesha Genao PA [address] [place] [address] Physician Machine Builder Family Medicine 06/20/23 documented as of this encounter
--- OUTSIDE RECORDS SUMMARY | 2024-07-03 12:44 | XMS_ITS | Clinical Summary ---
Author Organization [facility] Address [address] [place] [address] Care Team Providers Care Transportation Maintenance Supervisor Name Role Phone Yuliana Marcus MD Primary Care Provider Tyesha Genao Unavailable Allergies No known active allergies Medications atorvastatin (LIPITOR) 10 mg tablet 10/22/19 18 Active ONETOUCH VERIO strip 07/27/19 18 Active FLUoxetine (PROzac) 40 mg capsule daily. Active ONETOUCH DELICA LANCETS 33 gauge misc 07/27/19 18 Active levothyroxine (SYNTHROID, LEVOTHROID) 75 mcg tablet 09/21/19 18 Active triamcinolone (KENALOG) 0.1 % creamIndications :Psoriasis vulgaris Apply topically 2 (two) times a day Mix (1:1) with ketoconazole cream. 80 g 6 07/16/19 21 Active betamethasone dipropionate (DIPROLENE) 0.05 % lotion Apply topically 2 (two) times a day as needed (Rash) Betamethasone diproprionate 0.05% lotion, every day scalp prn, disp 60ml, 6 RF 60 mL 6 12/09/19 21 Active ALPRAZolam (XANAX) 0.5 mg tablet PRN 05/04/19 22 Active celecoxib (CeleBREX) 100 mg capsule 10/02/[address] (NexIUM) 40 mg capsule Take 1 capsule (40 mg total) by mouth 2 (two) times a day PRN 09/19/19 22 Active tacrolimus (PROTOPIC) 0.1 % ointment Apply topically 2 (two) times a day to rash on face 30 g 3 12/23/19 22 Active roflumilast 0.3 % creamIndications :Psoriasis vulgaris Apply 1 application topically daily as needed (rash under breasts) 60 g 3 05/26/19 23 Active CALCIUM ORAL Take 1,200 mg by mouth daily Active aspirin 81 mg enteric coated tablet Take 1 tablet (81 mg total) by mouth daily Active clotrimazole-bet amethasone (LOTRISONE) cream PRN 07/09/19 24 Active metoprolol XL (TOPROL-XL) 25 mg extended release tablet Take 1 tablet (25 mg total) by mouth daily Active calcium-vits C7-R-E5-minerals 166.75 mg- 166.75 unit capsule Take 166 mg by mouth daily after breakfast 90 capsule 2 07/29/19 24 Active Mounjaro 10 mg/0.5 mL pen injector INJECT 1 SYRINGE SUBCUTANEOUSLY ONCE A WEEK 01/30/20 24 Active ketoconazole (NIZORAL) 2 % creamIndications :Intertrigo Apply to affected areas twice daily as needed 30 g 5 03/28/19 25 Active hydrocortisone 2.5 % creamIndications :Intertrigo Apply topically 2 (two) times a day 30 g 5 03/28/19 25 Active clobetasoL (TEMOVATE) 0.05 % ointmentIndicati ons:Psoriasis, unspecified Apply topically 2 (two) times a day 60 g 6 03/28/19 25 Active Mounjaro 12.5 mg/0.5 mL pen injector injection Inject 0.5 mL (12.5 mg total) under the skin 05/22/19 25 Active methotrexate 2.5 mg tabletIndication s:autoimmune disease Take 8 tablets (20 mg total) by mouth every 7 days 96 tablet 05/24/19 25 025 Active folic acid (FOLVITE) 1 mg tabletIndication s:Psoriatic arthritis (HCC) Take 1 tablet (1 mg total) by mouth daily 90 tablet 3 05/24/19 25 026 Active Hyrimoz,CF, Pen 40 mg/0.4 mL pen injectorIndicati ons:Psoriatic arthritis (HCC) INJECT 1 PEN UNDER THE SKIN EVERY 14 DAYS 0.8 mL 3 06/01/19 25 Active Active Problems Problem Noted Date Diagnosed Date Psoriatic arthritis 11/23/2023 Abnormal x-ray of hand 11/23/2023 Body mass index 32.0-32.9, adult 07/12/2017 Leukocytosis 07/11/2017 Rash 07/30/2016 Digital mucous cyst 07/30/2016 Allergic rhinitis due to pollen 09/30/2015 Pollen-food allergy 09/30/2015 Sensorineural hearing loss (SNHL) of both ears 0 08/09/2014 Chronic infection of sinus 08/08/2014 Sensation of plugged ear 08/08/2014 Infection of ear 08/08/2014 Pain in ear 08/08/2014 Laryngopharyngeal reflux 01/15/2014 High risk medications (not anticoagulants) long- term use 11/21/2012 Actinic keratosis 02/15/2011 Psoriasis 08/24/2010 Encounters Date Type Department Care Team Description 05/23/2024 8:00 AM TOPOGRAPHICAL FIELD ASSISTANT Office Visit [facility] Rheumatology [address] [place] [address] [address] [place] [address] Kathya Perez MD Psoriatic arthritis (HCC) (Primary Dx); Psoriasis (a type of skin inflammation); High risk medication use; History of splenectomy 05/11/2024 Results Follow-Up [facility] Rheumatology [facility] Medicine 5th [place] [address] [place] [address] Kathya Perez MD 05/10/2024 8:30 AM TOPOGRAPHICAL FIELD ASSISTANT Lab [facility] Outpatient Lab at [address] [address] Psoriasis (Primary Dx); High risk medications (not anticoagulants) long-term use 05/10/2024 8:25 AM TOPOGRAPHICAL FIELD ASSISTANT - 05/10/2024 11:59 PM TOPOGRAPHICAL FIELD ASSISTANT Hospital Encounter [facility] [id number] [place] [address] High risk medication use; Psoriatic arthritis (HCC) Discharge Disposition: Discharge to home or self care from Last 3 Months Immunizations Immunization Administration Dates Next Due Influenza, Quadrivalent, Joellen l Culture-based MDCK, Preservative Free, Antibiotic Free, Intramuscular 01/03/2018 Influenza, Trivalent, High D ose, Split, Preservative Free, Intramuscular 02/15/2024 Surgical History Surgery Date Site/Laterality Comments SPLENECTOMY 03/21/2000 - 03/20/2001 SECTION 03/21/1998 - 03/20/1999 SECTION 03/21/2001 - 03/20/2002 REDUCTION MAMMAPLASTY 03/21/1993 - 03/20/1994 Bilateral Medical History Medical History Date Comments Hypothyroidism Type II diabetes mellitus (HCC) since 16 years old Psoriasis Psoriatic arthritis (HCC) Rheumatoid arthritis (HCC) Family History Medical History Relation Name Comments Heart disease Brother 1 Family history of cardiac disorder - (Added by TW Conv) Hypertension Brother 2 Family history of hypertension - (Added by TW Conv) Diabetes Brother 3 Family history of diabetes mellitus - (Added by TW Conv) Heart disease Brother 4 Family history of cardiac disorder - (Added by TW Conv) Hypertension Brother 5 Family history of hypertension - (Added by TW Conv) Diabetes Brother 6 Family history of diabetes mellitus - (Added by TW Conv) Diabetes Father Family history of diabetes mellitus - (Added by TW Conv)/Family history of diabetes mellitus - (Added by TW Conv) Heart disease Father Family history of cardiac disorder - (Added by TW Conv)/Family history of cardiac disorder - (Added by TW Conv) Hypertension Father Family history of hypertension - (Added by TW Conv)/Family history of hypertension - (Added by TW Conv) Heart disease Mother Family history of cardiac disorder - (Added by TW Conv)/Family history of cardiac disorder - (Added by TW Conv) Psoriasis Other 1 Family history of psoriasis - (Added by TW Conv) Diabetes type I Other 2 Family histo ry of type 1 diabetes mellitus - (Added by TW Conv) Heart disease Other 3 Family history of cardiac disorder - (Added by TW Conv) Hypertension Other 4 Family history of hypertension - (Added by TW Conv) Heart disease Other 5 Family history of cardiac disorder - (Added by TW Conv) Psoriasis Other 6 Family history of psoriasis - (Added by TW Conv) Diabetes type I Other 7 Family histo ry of type 1 diabetes mellitus - (Added by TW Conv) Hypertension Other 8 Family history of hypertension - (Added by TW Conv) Relation Name Status Comments Brother 1 Brother 2 Brother 3 Brother 4 Brother 5 Brother 6 Father Mother Other 1 Other 2 Other 3 Other 4 Other 5 Other 6 Other 7 Other 8 Social History Tobacco Use Types Packs/Day Years Used Date Smoking Tobacco: Never Passive Smoke Exposure: Never Smokeless Tobacco: Never Tobacco Cessation:Counseling Given: Not Answered Alcohol Use Standard Drinks/Week Comments Yes 0 (1 standard drink = 0.6 oz pur e alcohol) occ Social Connection and Isolat ion Panel [NHANES] Answer Date Recorded In a typical week, how many times do you talk on the phone with family, friends, or neighbors? More than three times a week 11/22/2023 How often do you get togethe r with friends or relatives? Twice a week 11/22/2023 How often do you attend chur ch or baptist services? Never 11/22/2023 Do you belong to any clubs o r organizations such as worship groups, unions, fraternal or athletic groups, or school groups? No 11/22/2023 How often do you attend meet ings of the clubs or organizations you belong to? Not asked 11/22/2023 Are you , , di vorced, , never , or living with a partner? 11/22/2023 Overall Financial Resource Strain (CARDIA) Answe r Date Recorded How hard is it for you to pa y for the very basics like food, housing, medical care, and heating? Not hard at all 11/22/2023 PHQ-2 Answer Date Recorded Patient Health Questionnaire-2 Score 0 11/22/2023 [facility] - Occupational Stress Questionnaire Answer Date Recorded Do you feel stress - tense, restless, nervous, or anxious, or unable to sleep at night because your mind is troubled all the time - these days? To some extent 11/22/2023 Exercise Vital Sign Answer Date Recorde d On average, how many days pe r week do you engage in moderate to strenuous exercise (like a brisk walk)? 0 days 11/22/2023 On average, how many minutes do you engage in exercise at this level? 0 min 11/22/2023 Hunger Vital Sign Answer Date Recorded Within the past 12 months, y ou worried that your food would run out before you got the money to buy more. Never true 11/22/19 24 Within the past 12 months, t he food you bought just didn't last and you didn't have money to get more. Never true 11/22/2023 PRAPARE - Transportation Answer Date Re corded In the past 12 months, has l ack of transportation kept you from medical appointments or from getting medications? No 05/2023 In the past 12 months, has l ack of transportation kept you from meetings, work, or from getting things needed for daily living? No 11/22/2023 Housing Stability Vital Sign Answer Koby e Recorded In the last 12 months, was t here a time when you were not able to pay the mortgage or rent on time? No 07/18/2023 In the last 12 months, how many places have you lived? 1 07/18/2023 In the last 12 months, was t here a time when you did not have a steady place to sleep or slept in a penitentiary (including now)? No 07/18/2023 Comments No Sex and Gender Information Value Date Recorded Sex Assigned at Not on file Legal Sex Female 12:26 AM TOPOGRAPHICAL FIELD ASSISTANT Gender Identity Not on file Sexual Orientation Not on file Obstetrics History Para Term AB IAB SAB Ectopic Multiple Livin g Live Births 3 3 3 Date Outcome GA Total Labor Labor/2nd/3rd Weight Sex Type Anes PTL Saskia A1 A5 Name Clin Term Term Term Last Filed Vital Signs Vital Sign Reading Time Taken Comments Blood Pressure 99/59 05/23/2024 7:58 AM TOPOGRAPHICAL FIELD ASSISTANT Pulse 77 05/23/2024 7:58 AM TOPOGRAPHICAL FIELD ASSISTANT Temperature 36.8 C (98.2 F) 05/23/2024 7:58 AM TOPOGRAPHICAL FIELD ASSISTANT Respiratory Rate 16 09/28/2023 1:26 PM CDT Oxygen Saturation 98% 05/23/2024 7:58 AM TOPOGRAPHICAL FIELD ASSISTANT Inhaled Oxygen Concentration - - Weight 71.9 kg (158 lb 9.6 oz) 05/23/2024 7:58 A M TOPOGRAPHICAL FIELD ASSISTANT Height 157.5 cm (5' 2 ) 05/23/2024 7:58 AM TOPOGRAPHICAL FIELD ASSISTANT Body Mass Index 29.01 05/23/2024 7:58 AM TOPOGRAPHICAL FIELD ASSISTANT Plan of Treatment Health Maintenance Due Date Last Done Comments Cervical Cancer Screening 1970 Colon Cancer Screening-Colonoscopy 1970 Hepatitis C Screening 1970 Meningococcal B Vaccine (1 o f 5 - Increased Risk) 02/21/1980 Hepatitis B Screening 02/21/1988 Regular Well Visit/Exam 18-64 02/21/1988 Covid-19 Vaccine (3 - Modern a risk series) 06/11/2020 05/14/2020, 04/16/2020 Zoster Vaccine (2 of 2) 07/22/2022 05/27/2022 Breast Cancer Screening-Mammogram 01/04/2024 01/03/2023, 01/03/2023, 01/21/2021, Additional history exists Depression Screening 11/21/2024 11/22/2023, 07/18/19 24 DTaP/Tdap/Td Vaccine (2 - Td or Tdap) 05/27/2032 05/27/2022 Pneumococcal vaccine <65 Completed 02/19/2022 Influenza Vaccine Completed 02/15/2024, , 02/28/2021, Additional history exists Procedures Procedure Name Priority Date/Time Associated Diagnosis Comments EGFR Routine 05/10/2024 8:25 AM TOPOGRAPHICAL FIELD ASSISTANT High risk medication use Psoriatic arthritis (HCC) DIFFERENTIAL AUTO Routine 05/10/2024 8:2 5 AM TOPOGRAPHICAL FIELD ASSISTANT High risk medication use Psoriatic arthritis (HCC) CBC WITH AUTO DIFFERENTIAL Routine 05/10/2024 8:25 AM TOPOGRAPHICAL FIELD ASSISTANT High risk medication use Psoriatic arthritis (HCC) COMPREHENSIVE METABOLIC PANEL Routine 05/10/2024 8:25 AM TOPOGRAPHICAL FIELD ASSISTANT High risk medication use Psoriatic arthritis (HCC) CRP (ACUTE PHASE) Routine 05/10/2024 8:2 5 AM TOPOGRAPHICAL FIELD ASSISTANT High risk medication use Psoriatic arthritis (HCC) ERYTHROCYTE SEDIMENTATION RATE Routine 05/10/2024 8:25 AM TOPOGRAPHICAL FIELD ASSISTANT High risk medication use Psoriatic arthritis (HCC) SCREENING MAMMOGRAM BILATERAL W CHANDLER Schedule Routine, Read Routine (OP Routine) 01/03/2023 8:23 AM CDT Screening breast examination from Last 3 Months or Most Recently Relevant to Health Maintenance Results * eGFR (05/10/2024 8:25 AM TOPOGRAPHICAL FIELD ASSISTANT) eGFR >90 >=60 mL/min/1. 73 m2 Comment: Interpretive Data Reference Interval Normal >/= 90 mL/min/1.73m2 Mildly decreased* 60 - 89 mL/min/1.73m2 Mildly to moderately decreased 45 - 59 mL/min/1.73m2 Moderately to severely decreased 30 - 44 mL/min/1.73m2 Severely decreased 15 - 29 mL/min/1.73m2 Kidney Failure < 15 mL/min/1.73m2 *Relative to young adult level Estimated glomerular filtration rate is determined by the 2020 CKD-EPI equation recommended by the National Kidney Foundation (A Unifying Approach to GFR Estimation: Recommendations of the NKF-ASK Task Force on Reassessing the Inclusion of Race in Diagnosing Kidney Disease, JASN 2020). The CKD-EPI equation should not be used for patients with unstable renal function and has not been validated in children and those over 70. Current interpretive data was last reviewed 2021. Blood 05/10/2024 8:25 AM TOPOGRAPHICAL FIELD ASSISTANT 05/10/2024 7:23 PM TOPOGRAPHICAL FIELD ASSISTANT us Kathya Perez MD LAB BLOOD ORDERABLES Final Result [facility] [address] Department [place] [address] * Differential, auto (05/10/2024 8:25 AM TOPOGRAPHICAL FIELD ASSISTANT) Neutrophil abs 3.9 1.5 - 6.5 K/cumm Imm gran abs 0.0 0.0 - 0.1 K/cumm [facility] Lymphocyte abs 2.7 0.8 - 3.3 K/cumm [facility] Monocyte abs 0.8 0.2 - 0.8 K/cumm [facility] Eosinophil abs 0.5 0.0 - 0.5 K/cumm [facility] Basophil abs 0.1 0.0 - 0.1 K/cumm [facility] Neutrophil pct 49.2 % [facility] Comment: Interpretive Data Percent cell count reference ranges are not reported, since discordance with absolute values may lead to misinterpretation of CBC data. Current Interpretive Data was last revised on 2017. Imm gran pct 0.3 % [facility] Comment: Interpretive Data Percent cell count reference ranges are not reported, since discordance with absolute values may lead to misinterpretation of CBC data. Current Interpretive Data was last revised on 2017. Lymphocyte pct 34.0 % [facility] Comment: Interpretive Data Percent cell count reference ranges are not reported, since discordance with absolute values may lead to misinterpretation of CBC data. Current Interpretive Data was last revised on 2017. Monocyte pct 9.6 % [facility] Comment: Interpretive Data Percent cell count reference ranges are not reported, since discordance with absolute values may lead to misinterpretation of CBC data. Current Interpretive Data was last revised on 2017. Eosinophil pct 6.3 % [facility] Comment: Interpretive Data Percent cell count reference ranges are not reported, since discordance with absolute values may lead to misinterpretation of CBC data. Current Interpretive Data was last revised on 2017. Basophil pct 0.6 % [facility] Comment: Interpretive Data Percent cell count reference ranges are not reported, since discordance with absolute values may lead to misinterpretation of CBC data. Current Interpretive Data was last revised on 2017. Blood 05/10/2024 8:25 AM TOPOGRAPHICAL FIELD ASSISTANT 05/10/2024 7:15 PM TOPOGRAPHICAL FIELD ASSISTANT us Kathya Perez MD LAB BLOOD ORDERABLES Final Result [facility] [address] Department [place] [address] * (ABNORMAL) CBC with auto differential (05/10/2024 8:25 AM TOPOGRAPHICAL FIELD ASSISTANT) WBC 7.8 3.8 - 9.9 K/cumm Hgb 13.5 11.9 - 15.5 g/dL [facility] Hct 42.7 35.6 - 45.5 % [facility] Plt 379 150 - 400 K/cumm [facility] MPV 9.8 9.1 - 12.3 fL [facility] RBC 4.37 3.90 - 5.20 M/cumm [facility] MCV 97.7(H) 81.3 - 96.4 fL [facility] MCH 30.9 27.1 - 33.3 pg [facility] MCHC 31.6(L) 32.3 - 35.7 g/dL [facility] RDW CV 17.7(H) 11.1 - 14.9 % [facility] CH RDW SD 62.8(H) 35.7 - 48.1 fL [facility] NRBC abs 0.02(H) 0.00 - 0.01 K/cumm [facility] Blood 05/10/2024 8:25 AM TOPOGRAPHICAL FIELD ASSISTANT 05/10/2024 7:15 PM TOPOGRAPHICAL FIELD ASSISTANT Kathya Perez MD LAB BLOOD ORDERABLES Final Result [facility] [address] [address] [facility] [employer] [place] [address] * Erythrocyte sedimentation rate (05/10/2024 8:25 AM TOPOGRAPHICAL FIELD ASSISTANT) Erythrocyte sedimentation rate 9 1 - 30 mm/hr Blood 05/10/2024 8:25 AM TOPOGRAPHICAL FIELD ASSISTANT 05/10/2024 7:15 PM TOPOGRAPHICAL FIELD ASSISTANT Kathya Perez MD LAB BLOOD ORDERABLES Final Result Performing Organization Address [facility] Co de Phone Number [facility] [phone] [address] [facility] [employer] [place] [address] * CRP (acute phase) (05/10/2024 8:25 AM TOPOGRAPHICAL FIELD ASSISTANT) CRP <3.0 <=10.0 mg/L Blood 05/10/2024 8:25 AM TOPOGRAPHICAL FIELD ASSISTANT 05/10/2024 7:15 PM TOPOGRAPHICAL FIELD ASSISTANT Kathya Perez MD LAB BLOOD ORDERABLES Final Result Performing Organization Address [facility] Co de Phone Number [facility] [phone] [address] [facility] [employer] [place] [address] * (ABNORMAL) Comprehensive metabolic panel (05/10/2024 8:25 AM TOPOGRAPHICAL FIELD ASSISTANT) Sodium 142 135 - 145 mmol/L Potassium, pl 4.4 3.3 - 4.9 mmol/L [facility] Chloride 106 97 - 110 mmol/L [facility] CO2 24 22 - 32 mmol/L [facility] Anion gap 12 2 - 15 mmol/L [facility] BUN 18 6 - 25 mg/dL [facility] Creatinine 0.71 0.60 - 1.10 mg/dL [facility] Glucose 99 70 - 199 mg/dL [facility] Comment: Interpretive Data Fasting glucose >/= 126 mg/dl is diagnostic for diabetes. Fasting is defined as no caloric intake for at least 8 hours. Fasting glucose between 100 mg/dl to 125 mg/dl is diagnostic of prediabetes. In a patient with classic symptoms of hyperglycemia or hyperglycemic crisis, a random glucose >/= 200 mg/dl is diagnostic for diabetes. In the absence of unequivocal hyperglycemia, results should be confirmed by repeat testing. The classification and Diagnosis of Diabetes Diabetes Care 202; 46: S19-S40. Current interpretive data was last revised 2022. Calcium 9.3 8.5 - 10.3 mg/dL [facility] Bilirubin, total 0.6 0.1 - 1.2 mg/dL [facility] Protein, pl 6.8 6.5 - 8.5 g/dL [facility] Albumin 3.9 3.5 - 5.0 g/dL [facility] Alk phos 74 40 - 130 Units/L [facility] ALT 48(H) 7 - 45 Units/L [facility] AST 50(H) 10 - 45 Units/L [facility] Blood 05/10/2024 8:25 AM TOPOGRAPHICAL FIELD ASSISTANT 05/10/2024 7:15 PM TOPOGRAPHICAL FIELD ASSISTANT us Kathya Perez MD LAB BLOOD ORDERABLES Final Result [facility] [address] Department [place] [address] * Screening Mammogram Bilateral W Chandler (01/03/2023 8:23 AM CDT) Anatomical Region Laterality Modality Breast Bilateral Mammography Impressions 01/03/2023 8:42 AM CDT BI-RADS ATLAS category (overall): 2 - Benign There is no mammographic evidence of malignancy. A 1 year screening mammogram is recommended. The patient has been or will be contacted. We recommend annual screening mammography for women at average risk of breast cancer beginning at age 40, based on guidelines of the [employer] (ACR Practice Parameter for the Performance of Screening and Diagnostic Mammography) and [employer]. For women with and elevated risk of breast cancer, please refer to the ACR Practice Parameter for specific screening recommendations. The patient will be entered into a reminder system with a target due date of 1 year for her next screening exam. Narrative 01/03/2023 8:42 AM CDT Screening Mammogram Bilateral W Chandler: 01/03/23 The study was acquired using full field digital technology and interpreted from soft copy. 2D digital mammographic views, as well as 3D digital tomosynthesis were performed in the CC and MLO projections. CLINICAL: Screening breast examination No relevant medical history has been documented for this patient. No known family history of breast cancer. COMPARISONS: 01/21/2021 Screening Mammogram Bilateral W Chandler 07/20/2017 Screening Mammogram 2D Bilateral 02/23/2016 Screening Mammogram Bilateral W Chandler 07/26/2014 Screening Mammogram Bilateral W Hcandler BREAST TISSUE: The breasts have scattered areas of fibroglandular density. FINDINGS: There are stable post operative changes of reduction mammoplasty in both breasts. There are unchanged benign microcalcifications in both breasts. There is no new suspicious finding in either breast on mammogram. Tyesha RICKS IM MAMMO PROCEDURES Shaye cross Result from Last 3 Months or Most Recently Relevant to Health Maintenance Insurance [facility] [employer] Member Subscriber Plan / Payer (Ef fective 2000-Present) Name:Lyn Thorpe Relation to Subscriber:Spouse Name:MARK THORPE II Date of :1965 (Home) Address: [address] [place] [address] Payer ID:[id number] (NAIC) Group ID:[id number] Type:[employer] Address: [address] [facility] Care Teams Transportation Maintenance Supervisor Relationship Specialty Start Date End Date Yuliana Marcus MD [address] [place] [address] PCP - General 07/23/16 Tyesha Genao PA [address] [place] [address] Physician [facility] 06/20/23
--- OUTSIDE RECORDS SUMMARY | 2024-07-03 12:44 | XMS_ITS | Referral Summary ---
Author Organization [facility] Address [address] [place] [address] Care Team Providers Care Clinical Information Systems Director Name Role Phone Yuliana Marcus MD Primary Care Provider Tyesha Genao Unavailable Encounters Date Type Department Care Team Description 05/23/2024 8:00 AM TRIMMER OPERATOR Office Visit [facility] Rheumatology [address] [place] [address] [address] [place] [id number] Kathya Perez MD Psoriatic arthritis (HCC) (Primary Dx); Psoriasis (a type of skin inflammation); High risk medication use; History of splenectomy 05/11/2024 Results Follow-Up [facility] Rheumatology [address] [facility] 5th [place] [address] [place] [address] Kathya Perez MD 05/10/2024 8:25 AM TRIMMER OPERATOR - 05/10/2024 11:59 PM TRIMMER OPERATOR Hospital Encounter [address] [place] [address] High risk medication use; Psoriatic arthritis (HCC) Discharge Disposition: Discharge to home or self care 05/10/2024 8:30 AM TRIMMER OPER[address] Lab [facility] Outpatient Lab at [address] [address] Psoriasis (Primary Dx); High risk medications (not anticoagulants) long-term use from Last 3 Months Allergies No known active allergies Medications atorvastatin [...] mg total) by mouth daily Active calcium-vits X9-G-A7-minerals 166.75 mg- 166.75 unit capsule Take 166 [...] use 11/21/2012 Actinic keratosis 02/15/2011 Psoriasis 08/24/2010 Immunizations Immunization Administration Dates Next Due Influenza, Quadrivalent, Joellen l Culture-based MDCK, Preservative Free, Antibiotic Free, Intramuscular 01/03/2018 Influenza, Trivalent, High D ose, Split, Preservative Free, Intramuscular 02/15/2024 Social History Tobacco Use Types Packs/Day Years [...] often do you attend chur ch or holiness services? Never 11/22/2023 Do you belong to any clubs o r organizations such as scientology groups, unions, fraternal or athletic groups, or [...] Recorded Patient Health Questionnaire-2 Score 0 11/22/2023 [facility] Occup[facility] ional Health - Occupational [...] place to sleep or slept in a long term (including now)? No 07/18/2023 Comments No Sex and Gender Information Value Date Recorded Sex Assigned at Not on file Legal Sex Female 12:26 AM TRIMMER OPERATOR Gender Identity Not on file Sexual Orientation Not on file Last Filed Vital Signs Vital Sign Reading Time Taken Comments Blood Pressure 99/59 05/23/2024 7:58 AM TRIMMER OPERATOR Pulse 77 05/23/2024 7:58 AM TRIMMER OPERATOR Temperature 36.8 C (98.2 F) 05/23/2024 7:58 AM TRIMMER OPERATOR Respiratory Rate 16 09/28/2023 1:26 PM CDT Oxygen Saturation 98% 05/23/2024 7:58 AM TRIMMER OPERATOR Inhaled Oxygen Concentration - - Weight 71.9 kg (158 lb 9.6 oz) 05/23/2024 7:58 A M TRIMMER OPERATOR Height 157.5 cm (5' 2 ) 05/23/2024 7:58 AM TRIMMER OPERATOR Body Mass Index 29.01 05/23/2024 7:58 AM TRIMMER OPERATOR Plan of Treatment Not on file Procedures Procedure Name Priority Date/Time Associated Diagnosis Comments EGFR Routine 05/10/2024 8:25 AM TRIMMER OPERATOR High risk medication use Psoriatic arthritis (HCC) DIFFERENTIAL AUTO Routine 05/10/2024 8:2 5 AM TRIMMER OPERATOR High risk medication use Psoriatic arthritis (HCC) CBC WITH AUTO DIFFERENTIAL Routine 05/10/2024 8:25 AM TRIMMER OPERATOR High risk medication use Psoriatic arthritis (HCC) COMPREHENSIVE METABOLIC PANEL Routine 05/10/2024 8:25 AM TRIMMER OPERATOR High risk medication use Psoriatic arthritis (HCC) CRP (ACUTE PHASE) Routine 05/10/2024 8:2 5 AM TRIMMER OPERATOR High risk medication use Psoriatic arthritis (HCC) ERYTHROCYTE SEDIMENTATION RATE Routine 05/10/2024 8:25 AM TRIMMER OPERATOR High risk medication use Psoriatic arthritis (HCC) SCREENING MAMMOGRAM BILATERAL W CHANDLER Schedule Routine, Read Routine (OP Routine) 01/03/2023 8:23 AM CDT Screening breast examination from Last 3 Months or Most Recently Relevant to Health Maintenance Results * eGFR (05/10/2024 8:25 AM TRIMMER OPERATOR) eGFR >90 >=60 mL/min/1. 73 m2 Comment: [...] last reviewed 2021. Blood 05/10/2024 8:25 AM TRIMMER OPERATOR 05/10/2024 7:23 PM TRIMMER OPERATOR us Kathya Perez MD LAB BLOOD ORDERABLES Final Result MARLENY [id number] [place] [address] * Differential, auto (05/10/2024 8:25 AM TRIMMER OPERATOR) Neutrophil abs 3.9 1.5 - 6.5 K/cumm Imm gran abs 0.0 0.0 - 0.1 K/cumm [facility] Lymphocyte abs 2.7 0.8 - 3.3 K/cumm [facility] Monocyte abs 0.8 0.2 - 0.8 K/cumm [facility] Eosinophil abs 0.5 0.0 - 0.5 K/cumm [facility] Basophil abs 0.1 0.0 - 0.1 K/cumm [facility] Neutrophil pct 49.2 % [facility] Comment: Interpretive Data Percent cell count reference ranges are not reported, since discordance with absolute values may lead to misinterpretation of CBC data. Current Interpretive Data was last revised on 2017. Imm gran pct 0.3 % [facility] Comment: Interpretive Data Percent cell count reference ranges are not reported, since discordance with absolute values may lead to misinterpretation of CBC data. Current Interpretive Data was last revised on 2017. Lymphocyte pct 34.0 % [facility] Comment: Interpretive Data Percent cell count reference ranges are not reported, since discordance with absolute values may lead to misinterpretation of CBC data. Current Interpretive Data was last revised on 2017. Monocyte pct 9.6 % [facility] Comment: Interpretive Data Percent cell [...] revised on 2017. Blood 05/10/2024 8:25 AM TRIMMER OPERATOR 05/10/2024 7:15 PM TRIMMER OPERATOR us Kathya Perez MD LAB BLOOD ORDERABLES Final Result MARLENY SHAH [id number] [address] Department of [facility] [place], [place] [id number] * (ABNORMAL) CBC with auto differential (05/10/2024 8:25 AM TRIMMER OPERATOR) WBC 7.8 3.8 - 9.9 K/cumm Hgb 13.5 11.9 - 15.5 g/dL [facility] Hct 42.7 35.6 - 45.5 % [facility] Plt 379 150 - 400 K/cumm [facility] MPV 9.8 9.1 - 12.3 fL [facility] RBC 4.37 3.90 - 5.20 M/cumm [facility] MCV 97.7(H) 81.3 - 96.4 fL [facility] MCH 30.9 27.1 - 33.3 pg [facility] MCHC 31.6(L) 32.3 - 35.7 g/dL [facility] RDW CV 17.7(H) 11.1 - 14.9 % [facility] RDW SD 62.8(H) 35.7 - 48.1 fL [facility] NRBC abs 0.02(H) 0.00 - 0.01 K/cumm [facility] Blood 05/10/2024 8:25 AM TRIMMER OPERATOR 05/10/2024 7:15 PM TRIMMER OPERATOR us Kathya Perez MD LAB BLOOD ORDERABLES Final Result MARLENY SHAH [id number] [address] [place] [address] * Erythrocyte sedimentation rate (05/10/2024 8:25 AM TRIMMER OPERATOR) Erythrocyte sedimentation rate 9 1 - 30 mm/hr Blood 05/10/2024 8:25 AM TRIMMER OPERATOR 05/10/2024 7:15 PM TRIMMER OPERATOR Kathya Perez MD LAB BLOOD ORDERABLES Final Result Performing Organization Address City/[facility]/ZIP Co de Phone Number MARLENY SHAH [id number] [address] [place] [address] * CRP (acute phase) (05/10/2024 8:25 AM TRIMMER OPERATOR) Pathologist [facility] CRP <3.0 <=10.0 mg/L Blood 05/10/2024 8:25 AM TRIMMER OPERATOR 05/10/2024 7:15 PM TRIMMER OPERATOR Kathya Perez MD LAB BLOOD ORDERABLES Final Result Performing Organization Address [facility] Co de Phone Number MARLENY SHAH [address] [address] [place] [address] * (ABNORMAL) Comprehensive metabolic panel (05/10/2024 8:25 AM TRIMMER OPERATOR) Pathologist [facility] Sodium 142 135 - 145 mmol/L Potassium, pl 4.4 3.3 - 4.9 mmol/L [facility] Chloride 106 97 - 110 mmol/L [facility] CO2 24 22 - 32 mmol/L [facility] Anion gap 12 2 - 15 mmol/L [facility] BUN 18 6 - 25 mg/dL [facility] Creatinine 0.71 0.60 - 1.10 mg/dL [facility] Glucose 99 70 - 199 mg/dL [facility] Comment: Interpretive Data Fasting glucose >/= 126 [...] classification and Diagnosis of Diabetes Diabetes Care 2021; 46: S19-S40. Current interpretive data was last [...] - 45 Units/L [facility] Blood 05/10/2024 8:2 5 AM TRIMMER OPERATOR 05/10/2024 7:15 PM TRIMMER OPERATOR us Kathya Perez MD LAB BLOOD ORDERABLES Final Result MARLENY SHAH [id number] Department [place] [address] * Screening Mammogram Bilateral W Chandler (01/03/2023 [...] age 40, based on guidelines of the [employer] (ACR Practice Parameter for the Performance of Screening and Diagnostic Mammography) and [employer]. For women [...] W Chandler 07/26/2014 Screening Mammogram Bilateral W Chandler BREAST TISSUE: The breasts have scattered areas of fibroglandular density. FINDINGS: There are stable post operative changes of reduction mammoplasty in both breasts. There are unchanged benign microcalcifications in both breasts. There is no new suspicious finding in either breast on mammogram. Tyesha RICKS IMG MAMMO PROCEDURES Shaye l Result from Last 3 Months or Most Recently Relevant to Health Maintenance Insurance [facility] Care Teams Clinical Information Systems Director Relationship Specialty Start Date End Date Yuliana Marcus MD [address] [place] [address] PCP - General 07/23/16 Tyesha Genao PA [address] [place] [address] Physician Editor School Photograph Family Medicine 06/20/23
--- OUTSIDE RECORDS SUMMARY | 2024-07-03 12:44 | XMS_ITS | Encounter Summary ---
Author Organization [facility] Address [address] [place] [address] Phone Care Team Providers Care Senior Db2 Systems Programmer Name Role Phone Yuliana Marcus MD Primary Care Provider Tyesha Genao Unavailable [phone] Encounter Details Date Type Department Care Team (Late st Contact Info) Description 03/01/2022 Telephone [facility] Dermatology [address] [facility] 2nd [place] [address] [place] [id number] Tami Cabrera RMA [address] [facility] [address] [place] [address] Social History Tobacco Use Types Packs/Day Years Used Date Smoking Tobacco: Never Smokeless Tobacco: Never Alcohol Use Standard Drinks/Week Comments Yes 0 (1 standard drink = 0.6 oz pur e alcohol) occ Comments No Sex and Gender Information Value Date Recorded Sex Assigned at Not on file Legal Sex Female 12:26 AM [employer] DRIVER Gender Identity Not on file Sexual Orientation Not on file documented as of this encounter Miscellaneous Notes * Telephone Encounter - Tami Cabrera RMA - 03/08/2022 1:30 PM CST Faxed PA request into [facility] [phone] # [phone] Status: Approved approval dates: -08/29/2023 RAMBO# [id number] [employer] * Telephone Encounter - Tami Cabrera RMA - 03/01/2022 2:47 PM CST Received and submitted Lakshmi RICKS renewal request. Faxed PA request into [facility] [phone] # [phone] Status: Pending [employer] documented in this encounter Plan of Treatment Not on file documented as of this encounter Visit Diagnoses Not on filedocumented in this encounter Care Teams Senior Db2 Systems Programmer Relationship Specialty Start Date End Date Yuliana Marcus MD [address] [place] [address] PCP - General 07/23/16 Tyesha Genao PA [address] [place] [address] Physician Materials Branch Chief Family Medicine 06/20/23 documented as of this encounter
--- OUTSIDE RECORDS SUMMARY | 2024-07-03 12:44 | XMS_ITS | Encounter Summary ---
Author Organization [facility] Address [address] [place] [address] Phone Care Team Providers Care Hospital Laboratory Technician Name Role Phone Yuliana Marcus MD Primary Care Provider Tyesha Genao Unavailable [phone] Encounter Details Date Type Department Care Team (Late st Contact Info) Description 09/15/2022 Orders Only [facility] Scanning, Provider Social History Tobacco Use Types Packs/Day Years Used Date Smoking Tobacco: Never Smokeless Tobacco: Never Alcohol Use Standard Drinks/Week Comments Yes 0 (1 standard drink = 0.6 oz pur e alcohol) occ Comments No Sex and Gender Information Value Date Recorded Sex Assigned at Not on file Legal Sex Female 12:26 AM 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 FIRE 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 Gender Identity Not on file Sexual Orientation Not on file documented as of this encounter Plan of Treatment Not on file documented as of this encounter Procedures Procedure Name Priority Date/Time Associated Diagnosis Comments SCAN - RADIOLOGY/IMAGING 09/15/2022 documented in this encounter Results * SCAN - RADIOLOGY/IMAGING (09/15/2022) Anatomical Region Laterality Modality Other us Provider Scanning Final Result documented in this encounter Visit Diagnoses Not on filedocumented in this encounter Care Teams Hospital Laboratory Technician Relationship Specialty Start Date End Date Yuliana Marcus MD [address] [place] [address] PCP - General 07/23/16 Tyesha Genao PA [address] [place] [address] Physician Local Combination Truck Driver Family Medicine 06/20/23 documented as of this encounter
--- OUTSIDE RECORDS SUMMARY | 2024-07-03 12:44 | XMS_ITS | Encounter Summary ---
Author Organization [facility] Address [address] [place] [address] Phone Care Team Providers Care Genetic Counselor Name Role Phone Yuliana Marcus MD Primary Care Provider Tyesha Genao Unavailable [phone] Encounter Details Date Type Department Care Team (Late st Contact Info) Description 05/11/2024 Results Follow-Up [facility] Rheumatology [address] [facility] 5th [place] [address] [place] [address] Kathya Perez MD [address] [place] [address] Social History Tobacco Use Types Packs/Day Years [...] often do you attend chur ch or anglican services? Never 11/22/2023 Do you belong to any clubs o r organizations such as voodoo groups, unions, fraternal or athletic groups, or [...] Recorded Patient Health Questionnaire-2 Score 0 11/22/2023 [facility] of Occupat ional Health - Occupational Stress [...] place to sleep or slept in a correction (including now)? No 07/18/2023 Comments No Sex and Gender Information Value Date Recorded Sex Assigned at Not on file Legal Sex Female 12:26 AM DUST BOX TENDER Gender Identity Not on file Sexual Orientation Not on file documented as of this encounter Plan of Treatment Not on file documented as of this encounter Visit Diagnoses Not on filedocumented in this encounter Care Teams Genetic Counselor Relationship Specialty Start Date End Date Yuliana Marcus MD [address] [place] [id number] PCP - General 07/23/16 Tyesha Genao PA [address] [place] [address] Physician Cell Reliner Family Medicine 06/20/23 documented as of this encounter
--- OUTSIDE RECORDS SUMMARY | 2024-07-03 12:44 | XMS_ITS | Clinical Summary ---
Author Organization [facility] Address [address] [place] [address] Care Team Providers Care Gis Developer Name Role Phone Yuliana Marcus MD Primary Care Provider [phone] Allergies Active Allergy Reactions Criticality Noted Date Comments Metformin Vomiting High 05/16/2015 Morphine Nausea and Vomiting High 05/03/2018 Medications atorvastatin 10 MG tabletIndicatio ns:Hypercholest erolemia Take 1 tablet (10 mg total) by mouth nightly at bedtime. Indications: High Amount of Cholesterol in the Blood 9 Active clotrimazole-be tamethasone creamIndication s:Psoriasis Apply 1 each topically 2 (two) times daily. Active levothyroxine 50 MCG tabletIndicatio ns:Hypothyroidi sm,alternates with 75 mcg Take 1 tablet (50 mcg total) by mouth every other day. Indications: Underactive Thyroid, alternates with 75 mcg 9 Active levothyroxine 75 MCG tabletIndicatio ns:Hypothyroidi sm,alternates with 50 mcg Take 1 tablet (75 mcg total) by mouth every other day. Indications: Underactive Thyroid, alternates with 50 mcg 9 Active celecoxib 100 MG capsule Take 1 capsule (100 mg total) by mouth 2 (two) times daily. 1 Active FLUoxetine (PROZAC) 40 MG capsule Take 1 capsule (40 mg total) by mouth nightly. 3 Active metoprolol succinate ER (TOPROL-XL) 25 MG 24 hr tablet Take 1 tablet (25 mg total) by mouth daily. 3 Active esomeprazole (NEXIUM) 40 MG capsule Take 1 capsule (40 mg total) by mouth nightly. 3 Active ALPRAZolam (XANAX) 1 MG tablet Take 0.5-1 tablets (0.5-1 mg total) by mouth nightly as needed for Anxiety. 3 Active TALTZ 80 MG/ML Solution Auto-injector Inject 80 mg into the skin every 28 days. 3 Active TRULICITY 3 MG/0.5ML injection Inject 3 mg into the skin once a week. tuesday 3 Active Magnesium 400 MG Tab Take 1 tablet by mouth daily. Active vitamin D3, cholecalciferol , 125 mcg capsule Take 1 capsule (125 mcg total) by mouth nightly. Active aspirin EC (ECOTRIN) 81 MG tablet Take 1 tablet (81 mg total) by mouth daily. Active hydrOXYzine (ATARAX) 25 MG tablet Take 1 tablet (25 mg total) by mouth nightly as needed for Anxiety. 3 Active potassium citrate CR (UROCIT-K) 10 MEQ (1080 MG) tablet Take 1 tablet (10 mEq total) by mouth 3 (three) times daily with meals. Active biotin 300 MCG Tab Take 1 tablet (300 mcg total) by mouth daily. Active Zinc Sulfate (ZINC 15 OR) Take 1 tablet by mouth daily. Active Active Problems Problem Noted Date Diagnosed Date Nephrolithiasis 02/25/2023 Family History Medical History Relation Comments Diabetes Brother Diabetes Father Heart Disease Father Hypertension Father Stroke Father Heart Disease Mother Hypertension Mother Stroke Mother Cancer Paternal Grandfather Relation Status Comments Brother Father Mother Paternal Grandfather Social History Tobacco Use Types Packs/Day Years Used Date Smoking Tobacco: Never Smokeless Tobacco: Never Tobacco Cessation:Counseling Given: Not Answered Alcohol Use Standard Drinks/Week Comments Yes 0 (1 standard drink = 0.6 oz pur e alcohol) socially [facility] Utilities Answer Date Recorded In the past 12 months has th e [employer], oil, or water [employer] threatened to shut off services in your home? No 02/25/2023 Humiliation, Afraid, Rape, and Kick questionnair e Answer Date Recorded Within the last year, have y ou been afraid of your partner or ex-partner? No 02/25/2023 Within the last year, have y ou been humiliated or emotionally abused in other ways by your partner or ex-partner? No Within the last year, have y ou been kicked, hit, slapped, or otherwise physically hurt by your partner or ex-partner? No 02/25/2023 Within the last year, have y ou been raped or forced to have any kind of sexual activity by your partner or ex-partner? No 02/25/2023 Social Connection and Isolat ion Panel [NHANES] Answer Date Recorded In a typical week, how many times do you talk on the phone with family, friends, or neighbors? More than three times a week 02/25/2023 How often do you get togethe r with friends or relatives? Never 02/25/2023 How often do you attend chur or catholic services? Never 02/25/2023 Do you belong to any clubs o r organizations such as buddhist groups, unions, fraternal or athletic groups, or school groups? No 02/25/2023 How often do you attend meet ings of the clubs or organizations you belong to? Never 02/25/2023 Are you , , di vorced, , never , or living with a partner? 02/25/2023 AUDIT-C Answer Date Recorded Q1: How often do you have a drink containing alc ohol? Monthly or less 02/25/2023 Q2: How many drinks containi ng alcohol do you have on a typical day when you are drinking? 1 or 2 02/25/2023 Q3: How often do you have si x or more drinks on one occasion? Never 02/25/2023 Overall Financial Resource Strain (CARDIA) Answe r Date Recorded How hard is it for you to pa y for the very basics like food, housing, medical care, and heating? Not hard at all 02/25/2023 PHQ-2 Answer Date Recorded Patient Health Questionnaire-2 Score 0 02/25/2023 [facility]ational Stress Questionnaire Answer Date Recorded Do you feel stress - tense, restless, nervous, or anxious, or unable to sleep at night because your mind is troubled all the time - these days? Rather much 02/25/2023 Exercise Vital Sign Answer Date Recorde d On average, how many days pe r week do you engage in moderate to strenuous exercise (like a brisk walk)? 0 days 02/25/2023 On average, how many minutes do you engage in exercise at this level? 0 min 02/25/2023 Hunger Vital Sign Answer Date Recorded Within the past 12 months, y ou worried that your food would run out before you got the money to buy more. Never true 02/26/20 23 Within the past 12 months, t he food you bought just didn't last and you didn't have money to get more. Never true 02/25/2023 PRAPARE - Transportation Answer Date Re corded In the past 12 months, has l ack of transportation kept you from medical appointments or from getting medications? No 10/2022 In the past 12 months, has l ack of transportation kept you from meetings, work, or from getting things needed for daily living? No 02/25/2023 Housing Stability Vital Sign Answer Koby e Recorded In the last 12 months, was t here a time when you were not able to pay the mortgage or rent on time? No 02/25/2023 In the last 12 months, how many places have you lived? 1 02/25/2023 In the last 12 months, was t here a time when you did not have a steady place to sleep or slept in a mcfp (including now)? No 02/25/2023 Comments No Sex and Gender Information Value Date Recorded Sex Assigned at Not on file Legal Sex Female 6:38 PM CDT Gender Identity Not on file Sexual Orientation Not on file Last Filed Vital Signs Vital Sign Reading Time Taken Comments Blood Pressure 107/78 05/20/2023 4:20 PM OWNER MANAGER Pulse 97 05/20/2023 4:20 PM OWNER MANAGER Temperature 36.4 C (97.5 F) 05/20/2023 4:20 PM OWNER MANAGER Respiratory Rate 18 05/20/2023 4:20 PM OWNER MANAGER Oxygen Saturation 96% 05/20/2023 4:20 PM OWNER MANAGER Inhaled Oxygen Concentration - - Weight 81.6 kg (180 lb) 05/09/2023 8:51 AM OWNER MANAGER Height 157.5 cm (5' 2 ) 03/25/2023 12:00 PM OWNER MANAGER Body Mass Index 32.92 03/25/2023 12:00 PM OWNER MANAGER Plan of Treatment Health Maintenance Due Date Last Done Comments Cervical Cancer Screening Pap Smear (Age 30 to 64) Every 3 Years 1970 Colorectal Cancer Screening Colonoscopy (10 Years) 1970 Annual Physical 1973 Pneumococcal Vaccine: Pediatrics (0 to 5 Years) and At-Risk Patients (6 to 49 Years) (1 of 2 - PCV) 02/21/1976 Meningococcal B Vaccine (1 of 5 - Increased Risk) 02/21/1980 Hepatitis C 02/21/1988 DTaP, Tdap and Td Vaccines (1 - Tdap) 1989 Hepatitis B Vaccines (1 of 3 - 19+ 3-dose series) 1989 Cervical Cancer Screening Pap with HPV Testing (Age 30 to 64) Every 5 Years 02/21/2000 Cervical Cancer Screening with HPV 02/21/2000 Zoster Vaccines (1 of 2) 02/21/2020 Meningococcal Vaccine (2 - Risk 2-dose series) 04/28/2021 03/03/2021, 04/30/2005 COVID-19 Vaccine (3 - 2023- season) 2023 05/14/2020, 04/16/2020 Mammogram Screening 01/03/2025 01/03/2023, 01/21/2021, 07/19/2017, Additional history exists RSV Immunizations Under 20 Months Aged Out No longer eligible based on patient's age to complete this topic Medical Devices Implanted Type Area [employer] Management Professor Device Identifier Shelf Expiration Date Model / Serial / Lot Stent Ureteral 6fr 26cm Pigtl Crv Taper Tip Bldr Mrk - [id number] Implanted:Qty: 1 on 05/20/2023 by Matt Rowell MD at [facility] Stent Left: Ureter [employer] [id number] 12/21/2025 [id number] / / [id number] Stent Filform Double Pigtail Cook 6fr X 22cm - Sn/A Implanted:Qty: 1 on 04/21/2018 by Parviz Conroy MD at [facility] Right: Ureth[employer] 02/14/2021 [id number] / N/A / [id number] Stent Filform Double Pigtail Cook 6fr X 22cm - Sna Implanted:Qty: 1 on 05/05/2018 by Vipin Jimenez DO at [facility] Right: Ureter [employer] 02/14/2021 [id number] / NA / [id number] Stent Filform Double Pigtail Cook 6fr X 22cm - [id number] Implanted:Qty: 1 on 05/05/2018 by Vipin Jimenez DO at [facility] Left: Ureter [employer] 11/17/2020 [id number] / / [id number] Explanted Type Area Turfgrass Management Professor Device Identifier Shelf Expiration Date Model / Serial / Lot Stent Ureteral Pigtail 6fr 24cm Crv Taper Tip - [id number] Implanted:Qty : 1 on 02/25/2023 by Matt Rowell MD at [facility] Explanted:Qty : 1 on 03/25/2023 at [facility] Stent Right: Ureter [employer] STAN [id number] 09/05/2025 [id number] Insurance [facility] AETNA [facility] Advance Directives * Full Code (Latest Code Status on File) Date Activated Date Inactivated Comments 02/25/2023 12:20 PM 02/26/2023 1:22 PM Care Teams Gis Developer Relationship Specialty Start Date End Date Yuliana Marcus MD [address] [place] [address] PCP - General FAMILY PRACTICE 04/21/18
--- OUTSIDE RECORDS SUMMARY | 2024-07-03 12:44 | XMS_ITS | Encounter Summary ---
Author Organization [facility] Address [facility] [place] [address] Care Team Providers Care Manager Ed Name Role Phone Yuliana Marcus MD Primary Care Provider Encounter Details Date Type Department Care Team (Late st Contact Info) Description 05/16/2023 Prep for Procedure [facility] [place] [address] Matt Rowell MD [address] [facility] [place] [address] Social History Tobacco Use Types Packs/Day Years Used Date Smoking Tobacco: Never Smokeless Tobacco: Never Alcohol Use Standard Drinks/Week Comments Yes 0 (1 standard drink = 0.6 oz pur e alcohol) socially [facility] Utilities Answer Date Recorded In the past 12 months has [facility] [employer], gas, oil, or water [employer] threatened to shut off services in your [...] 02/25/2023 How often do you attend chur ch or caodaism services? Never 02/25/2023 Do you belong to any clubs o r organizations such as anabaptism groups, unions, fraternal or athletic groups, or [...] Recorded Patient Health Questionnaire-2 Score 0 02/25/2023 [facility] Occupat ionsd Health - Occupational Stress Questionnaire Answer Date [...] on file documented as of this encounter Functional Status * Are you deaf or do you have serious difficulty hearing Answer Date of Assessment Author Status No 02/25/2023 11:42 AM Karen Coto R N Active * Are you blind or do you have serious difficulty seeing, even when wearing glasses? Answer Date of Assessment Author Status No 02/25/2023 11:42 AM Karen Coto R N Active * Do you have serious difficulty walking or climbing stairs? Answer Date of Assessment Author Status No 02/25/2023 11:42 AM Karen Coto R N Active * Do you have difficulty dressing or bathing? Answer Date of Assessment Author Status No 02/25/2023 11:42 AM Karen Coto R N Active * Because of a physical, mental, or emotional condition, do you have difficulty doing errands alone such as visiting a doctor's office or shopping? Answer Date of Assessment Author Status No 02/25/2023 11:42 AM HEAD OF SALES PROMOTION Karen De Jesus R N Active documented as of this encounter Mental Status * Because of a physical, mental, or emotional condition, do you have serious difficulty concentrating, remembering, or making decisions? Answer Entry Date Author Status No 02/25/2023 11:42 AM HEAD OF SALES PROMOTION Karen De Jesus R N Active documented in this encounter Plan of Treatment Not on file documented as of this encounter Results * (ABNORMAL) URINALYSIS (05/09/2023 11:03 AM HEAD OF SALES PROMOTION) COLOR (U) YELLOW 05/09/2023 11:49 AM [facility] TRANSPARENCY CLEAR 05/09/2023 11:49 AM [facility] SPECIFIC GRAVITY (U) 1.010 1.000 - 1.030 05/09/2023 11:49 AM [facility] U PH 7.0 5.0 - 9.0 05/09/2023 11:49 AM [facility] LEUKOCYTES (U) NEGATIVE NEGATIVE 05/09/2023 11:49 AM [facility] NITRITES NEGATIVE NEGATIVE 05/09/2023 11:49 AM [facility] PROTEIN RANDOM (U) NEGATIVE NEGATIVE 05/09/2023 11:49 AM [facility] GLUCOSE (U) NEGATIVE NEGATIVE 05/09/2023 11:49 AM [facility] KETONES MG/DL (U) NEGATIVE NEGATIVE 05/09/2023 11:49 AM [facility] BILIRUBIN (U) NEGATIVE NEGATIVE 05/09/2023 11:49 AM [facility] BLOOD (U) TRACE(A) NEGATIVE 05/09/2023 11:49 AM [facility] CULTURE & SENSITIVITY INDICATED? CULTURE IS NOT INDICATED 05/09/2023 11:49 AM [facility] URINE SPECIMEN OBTAINED BY CLEAN CATCH PROCEDURE / Unknown 05/09/2023 11:03 AM HEAD OF SALES PROMOTION Matt Rowell MD URINE ORDERABLES Final Re sult Performing Organization Address [facility] de Phone Number [facility] [address] [place] [address], [place] [phone] * CULTURE URINE (05/09/2023 10:31 AM HEAD OF SALES PROMOTION) SPEC DESCRIPTION URINE CLEAN CATCH 05/09/2023 10:31 AM HEAD OF SALES PROMOTION [facility] SPECIAL REQUESTS NO SPECIAL REQUEST 05/09/2023 10:31 AM HEAD OF SALES PROMOTION [facility] CULTURE RESULT NO GROWTH 2 DAYS 05/11/2023 8:06 AM HEAD OF SALES PROMOTION [facility] URINE SPECIMEN OBTAINED BY CLEAN CATCH PROCEDURE / Unknown 05/09/2023 10:31 AM HEAD OF SALES PROMOTION 05/09/2023 11:06 AM HEAD OF SALES PROMOTION Matt Rowell MD MICROBIOLOGY - GENERAL OR DERABLES Final Result Performing Organization Address [facility] de Phone Number [facility] [address] [place] [address], [place] [phone] [facility] [address] [place] [address], [place] [phone] documented in this encounter Visit Diagnoses Diagnosis Nephrolithiasis- Primary Calculus of kidney documented in this encounter Care Teams Manager Ed Relationship Specialty Start Date End Date Yuliana Marcus MD [address] [place] [id number] PCP - General FAMILY PRACTICE 04/21/18 documented as of this encounter
--- OUTSIDE RECORDS SUMMARY | 2024-07-03 12:45 | XMS_ITS | Encounter Summary ---
Author Organization [facility] Address [facility] [place] [address] Care Team Providers Care Personnel Interviewer Name Role Phone Yuliana Marcus MD Primary Care Provider [phone] Encounter Details Date Type Department Care Team (Late st Contact Info) Description 08/26/2018 Abstract [facility] CONVERSION [address] [place] [address] , Generic Conversion, Social History Tobacco Use Types Packs/Day Years Used Date Smoking Tobacco: Never Smokeless Tobacco: Never Alcohol Use Standard Drinks/Week Comments No 0 (1 standard drink = 0.6 oz pur e alcohol) AUDIT-C Answer Date Recorded Frequency of Alcohol Consumption Never 04/21/2018 Average Number of Drinks Not on file 019 Frequency of Binge Drinking Not on file 03/2018 Comments Unknown Sex and Gender Information Value Date Recorded Sex Assigned at Not on file Legal Sex Female 6:38 PM CDT Gender Identity Not on file Sexual Orientation Not on file documented as of this encounter Plan of Treatment Not on file documented as of this encounter Visit Diagnoses Not on filedocumented in this encounter Additional Health Concerns Infection Onset Date Last Indicated Resolved Time 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
--- OUTSIDE RECORDS SUMMARY | 2024-07-03 12:45 | XMS_ITS | Patient Health Record ---
Author Organization [facility] Address [address] [place], [place] [id number] Care Team Providers Care Machinist Automotive Name Role Phone LORETA EDWARD Unavailable [phone] Twan Hylton Unavailable Unavailable Allergies No Known Allergies Reason For Referral No Information Plan Of Treatment Pending Test Test Name Order Date Uric Acid, Serum 07/26/2022 CBC With Differential/Platelet 3 Insurance Providers Payer Name Payer Address Payer Phone Subscriber Number Group Number Insured Name Patient Relationship to Insured Coverage Start Date Coverage End Date [employer] [address] [place] [address] [id number] SUSIE THORPE Self - patient is the insured [facility] ([facility] ATTN CLAIMS [address] [place] [address] [id number] MARK THORPE II Spouse - patient is the spouse of the insured
--- NOTE | 2024-07-03 12:52 | PC.NURSE ---
pt is resting on stretcher at this time with ivf infusing as ordered without difficulty. she has returned from ct and awaiting results. family at bedside. will continue to monitor.
--- OUTSIDE RECORDS SUMMARY | 2024-07-03 13:08 | XMS_ITS | Encounter Summary ---
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
--- OUTSIDE RECORDS SUMMARY | 2024-07-03 13:08 | XMS_ITS | Encounter Summary ---
Author Organization [facility] Address [address] [place] [address] Phone Care Team Providers Care Public Area Supervisor Name Role Phone Yuliana Marcus MD Primary Care Provider [phone] Tyesha Genao Unavailable [phone] Encounter Details Date Type Department Care Team (Late st Contact Info) Description 03/01/2022 Telephone [facility] Dermatology [address] [place] [address] [place] [id number] Tami Cabrera RMA [address] [facility] [address] [place] [address] Social History Tobacco Use Types Packs/Day Years Used Date Smoking Tobacco: Never Smokeless Tobacco: Never Alcohol Use Standard Drinks/Week Comments Yes 0 (1 standard drink = 0.6 oz pur e alcohol) occ Comments No Sex and Gender Information Value Date Recorded Sex Assigned at Not on file Legal Sex Female 12:26 AM PUTTY AND CAULKING SUPERVISOR Gender Identity Not on file Sexual Orientation Not on file documented as of this encounter Miscellaneous Notes * Telephone Encounter - Tami Cabrera RMA - 03/08/2022 1:30 PM CST Faxed PA request into [facility] [phone] # [phone] Status: Approved approval dates: -08/29/2023 RAMBO# [id number] Y AND CAULKING SUPERVISOR * Telephone Encounter - Tami Cabrera RMA - 03/01/2022 2:47 PM CST Received and submitted Lakshmi RICKS renewal request. Faxed PA request into [facility] [phone] # [phone] Status: Pending Y AND CAULKING SUPERVISOR documented in this encounter Plan of Treatment Not on file documented as of this encounter Visit Diagnoses Not on filedocumented in this encounter Care Teams Public Area Supervisor Relationship Specialty Start Date End Date Yuliana Marcus MD [address] [place] [address] PCP - General 07/23/16 Tyesha Genao PA [address] [place] [address] Physician Radiosonde Specialist Family Medicine 06/20/23 documented as of this encounter
--- OUTSIDE RECORDS SUMMARY | 2024-07-03 13:08 | XMS_ITS | Referral Summary ---
Author Organization [facility] Address [address] [place] [address] Care Team Providers Care Digital Retoucher Name Role Phone Yuliana Marcus MD Primary Care Provider Tyesha Genao Unavailable Encounters Date Type Department Care Team Description 05/23/2024 8:00 AM PROCUREMENT OFFICER Office Visit [facility] Rheumatology [address] [place] [address] [address] [place] [id number] Kathya Perez MD Psoriatic arthritis (HCC) (Primary Dx); Psoriasis (a type of skin inflammation); High risk medication use; History of splenectomy 05/11/2024 Results Follow-Up [facility] Rheumatology [address] [facility] 5th [place] [address] [place] [address] Kathya Perez MD 05/10/2024 8:25 AM PROCUREMENT OFFICER - 05/10/2024 11:59 PM PROCUREMENT OFFICER Hospital Encounter [facility] [address] [place] [address] High risk medication use; Psoriatic arthritis (HCC) Discharge Disposition: Discharge to home or self care 05/10/2024 8:30 AM PROCUREMENT OFFICER Lab [facility] Outpatient Lab at [address] [address] Psoriasis (Primary Dx); High risk [...] mg total) by mouth daily Active calcium-vits C1-W-V3-minerals 166.75 mg- 166.75 unit capsule Take 166 [...] often do you attend chur ch or zoroastrianism services? Never 11/22/2023 Do you belong to any clubs o r organizations such as jehovah's witness groups, unions, fraternal or athletic groups, or [...] Recorded Patient Health Questionnaire-2 Score 0 11/22/2023 [facility] - Occupational Stress [...] place to sleep or slept in a intermediate (including now)? No 07/18/2023 Comments No Sex and Gender Information Value Date Recorded Sex Assigned at Not on file Legal Sex Female 12:26 AM PROCUREMENT OFFICER Gender Identity Not on file Sexual Orientation Not on file Last Filed Vital Signs Vital Sign Reading Time Taken Comments Blood Pressure 99/59 05/23/2024 7:58 AM PROCUREMENT OFFICER Pulse 77 05/23/2024 7:58 AM PROCUREMENT OFFICER Temperature 36.8 C (98.2 F) 05/23/2024 7:58 AM PROCUREMENT OFFICER Respiratory Rate 16 09/28/2023 1:26 PM CDT Oxygen Saturation 98% 05/23/2024 7:58 AM PROCUREMENT OFFICER Inhaled Oxygen Concentration - - Weight 71.9 kg (158 lb 9.6 oz) 05/23/2024 7:58 A M PROCUREMENT OFFICER Height 157.5 cm (5' 2 ) 05/23/2024 7:58 AM PROCUREMENT OFFICER Body Mass Index 29.01 05/23/2024 7:58 AM PROCUREMENT OFFICER Plan of Treatment Not on file Procedures Procedure Name Priority Date/Time Associated Diagnosis Comments EGFR Routine 05/10/2024 8:25 AM PROCUREMENT OFFICER High risk medication use Psoriatic arthritis (HCC) DIFFERENTIAL AUTO Routine 05/10/2024 8:2 5 AM PROCUREMENT OFFICER High risk medication use Psoriatic arthritis (HCC) CBC WITH AUTO DIFFERENTIAL Routine 05/10/2024 8:25 AM PROCUREMENT OFFICER High risk medication use Psoriatic arthritis (HCC) COMPREHENSIVE METABOLIC PANEL Routine 05/10/2024 8:25 AM PROCUREMENT OFFICER High risk medication use Psoriatic arthritis (HCC) CRP (ACUTE PHASE) Routine 05/10/2024 8:2 5 AM PROCUREMENT OFFICER High risk medication use Psoriatic arthritis (HCC) ERYTHROCYTE SEDIMENTATION RATE Routine 05/10/2024 8:25 AM PROCUREMENT OFFICER High risk medication use Psoriatic arthritis (HCC) SCREENING MAMMOGRAM BILATERAL W CHANDLER Schedule Routine, Read Routine (OP Routine) 01/03/2023 8:23 AM CDT Screening breast examination from Last 3 Months or Most Recently Relevant to Health Maintenance Results * eGFR (05/10/2024 8:25 AM PROCUREMENT OFFICER) eGFR >90 >=60 mL/min/1. 73 m2 Comment: [...] last reviewed 2021. Blood 05/10/2024 8:25 AM PROCUREMENT OFFICER 05/10/2024 7:23 PM PROCUREMENT OFFICER us Kathya Perez MD LAB BLOOD ORDERABLES Final Result [address] [address] Department [place] [place] [address] * Differential, auto (05/10/2024 8:25 AM PROCUREMENT OFFICER) Neutrophil abs 3.9 1.5 - 6.5 K/cumm [...] revised on 2017. Blood 05/10/2024 8:25 AM PROCUREMENT OFFICER 05/10/2024 7:15 PM PROCUREMENT OFFICER us Kathya Perez MD LAB BLOOD ORDERABLES Final Result [facility] [address] Department of [employer] [place], [place] [id number] * (ABNORMAL) CBC with auto differential (05/10/2024 8:25 AM PROCUREMENT OFFICER) WBC 7.8 3.8 - 9.9 K/cumm Hgb 13.5 11.9 - 15.5 g/dL [facility] Hct 42.7 35.6 - 45.5 % [facility] Plt 379 150 - 400 K/cumm [facility] MPV 9.8 9.1 - 12.3 fL [facility] RBC 4.37 3.90 - 5.20 M/cumm [facility] MCV 97.7(H) 81.3 - 96.4 fL [facility] CH MCH 30.9 27.1 - 33.3 pg [facility] MCHC 31.6(L) 32.3 - 35.7 g/dL [facility] RDW CV 17.7(H) 11.1 - 14.9 % [facility] RDW SD 62.8(H) 35.7 - 48.1 fL [facility] CH NRBC abs 0.02(H) 0.00 - 0.01 K/cumm [facility] CH Blood 05/10/2024 8:25 AM PROCUREMENT OFFICER 05/10/2024 7:15 PM PROCUREMENT OFFICER us Kathya Perez MD LAB BLOOD ORDERABLES Final Result [facility] [id number] [address] [place] [place] [address] * Erythrocyte sedimentation rate (05/10/2024 8:25 AM PROCUREMENT OFFICER) Erythrocyte sedimentation rate 9 1 - 30 mm/hr Blood 05/10/2024 8:25 AM PROCUREMENT OFFICER 05/10/2024 7:15 PM PROCUREMENT OFFICER Kathya Perez MD LAB BLOOD ORDERABLES Final Result Performing Organization Address City/[facility]/ZIP Co de Phone Number [facility] [address] [address] Department [place] [place] [address] * CRP (acute phase) (05/10/2024 8:25 AM PROCUREMENT OFFICER) Pathologist [facility] CRP <3.0 <=10.0 mg/L Blood 05/10/2024 8:25 AM PROCUREMENT OFFICER 05/10/2024 7:15 PM PROCUREMENT OFFICER Kathya Perez MD LAB BLOOD ORDERABLES Final Result Performing Organization Address [facility] Co de Phone Number [facility] [address] [address] [address] Department [place] [place] [address] * (ABNORMAL) Comprehensive metabolic panel (05/10/2024 8:25 AM PROCUREMENT OFFICER) Pathologist [facility] Sodium 142 135 - 145 mmol/L [...] [facility] Blood 05/10/2024 8:2 5 AM PROCUREMENT OFFICER 05/10/2024 7:15 PM PROCUREMENT OFFICER us Kathya Perez MD LAB BLOOD ORDERABLES Final Result [facility] [address] [address] [place] [address] * Screening Mammogram Bilateral W Chandler (01/03/2023 [...] age 40, based on guidelines of the [place] [employer] (ACR Practice Parameter for the Performance of Screening and Diagnostic Mammography) and [place] [employer]. For women [...] Most Recently Relevant to Health Maintenance Insurance [facility] FEDERAL [facility] Care Teams Digital Retoucher Relationship Specialty Start Date End Date Yuliana Marcus MD [address] [place] [address] PCP - General 07/23/16 Tyesha Genao PA [address] [place] [address] Physician Insurance Specialist Family Medicine 06/20/23
--- OUTSIDE RECORDS SUMMARY | 2024-07-03 13:08 | XMS_ITS | Encounter Summary ---
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
--- OUTSIDE RECORDS SUMMARY | 2024-07-03 13:09 | XMS_ITS | Clinical Summary ---
Author Organization [facility] Address [address] [place] [address] Care Team Providers Care Motion Picture Photographer Name Role Phone Yuliana Marcus MD Primary Care Provider [phone] Tyesha Genao Unavailable Allergies No known active [...] mg total) by mouth daily Active calcium-vits W3-K-P6-minerals 166.75 mg- 166.75 unit capsule Take 166 [...] Department Care Team Description 05/23/2024 8:00 AM COPY HOLDER Office Visit [facility] Rheumatology [address] [place] [address] [address] [place] [address] Kathya Perez MD Psoriatic arthritis (HCC) (Primary Dx); Psoriasis (a type of skin inflammation); High risk medication use; History of splenectomy 05/11/2024 Results Follow-Up [facility] Rheumatology [facility] Medicine 5th [place] [address] [place] [address] Kathya Perez MD 05/10/2024 8:30 AM COPY HOLDER Lab [facility] Medical Group Outpatient Lab at [address] [address] Psoriasis (Primary Dx); High risk medications (not anticoagulants) long-term use 05/10/2024 8:25 AM COPY HOLDER - 05/10/2024 11:59 PM COPY HOLDER Hospital Encounter [place] [id number] [place] [address] High risk medication use; Psoriatic arthritis (HCC) [...] often do you attend chur ch or jainism services? Never 11/22/2023 Do you belong to any clubs o r organizations such as orthodoxy groups, unions, fraternal or athletic groups, or [...] Recorded Patient Health Questionnaire-2 Score 0 11/22/2023 [facility] ional Health - Occupational [...] place to sleep or slept in a assisted (including now)? No 07/18/2023 Comments No Sex and Gender Information Value Date Recorded Sex Assigned at Not on file Legal Sex Female 12:26 AM COPY HOLDER Gender Identity Not on file Sexual Orientation Not on file Obstetrics History Para Term AB IAB SAB Ectopic Multiple Livin g Live Births 3 3 3 Date Outcome GA Total Labor Labor/2nd/3rd Weight Sex Type Anes PTL Saskia A1 A5 Name Clin Term Term Term Last Filed Vital Signs Vital Sign Reading Time Taken Comments Blood Pressure 99/59 05/23/2024 7:58 AM COPY HOLDER Pulse 77 05/23/2024 7:58 AM COPY HOLDER Temperature 36.8 C (98.2 F) 05/23/2024 7:58 AM COPY HOLDER Respiratory Rate 16 09/28/2023 1:26 PM CDT Oxygen Saturation 98% 05/23/2024 7:58 AM COPY HOLDER Inhaled Oxygen Concentration - - Weight 71.9 kg (158 lb 9.6 oz) 05/23/2024 7:58 A M COPY HOLDER Height 157.5 cm (5' 2 ) 05/23/2024 7:58 AM COPY HOLDER Body Mass Index 29.01 05/23/2024 7:58 AM COPY HOLDER Plan of Treatment Health Maintenance Due Date [...] Diagnosis Comments EGFR Routine 05/10/2024 8:25 AM COPY HOLDER High risk medication use Psoriatic arthritis (HCC) DIFFERENTIAL AUTO Routine 05/10/2024 8:2 5 AM COPY HOLDER High risk medication use Psoriatic arthritis (HCC) CBC WITH AUTO DIFFERENTIAL Routine 05/10/2024 8:25 AM COPY HOLDER High risk medication use Psoriatic arthritis (HCC) COMPREHENSIVE METABOLIC PANEL Routine 05/10/2024 8:25 AM COPY HOLDER High risk medication use Psoriatic arthritis (HCC) CRP (ACUTE PHASE) Routine 05/10/2024 8:2 5 AM COPY HOLDER High risk medication use Psoriatic arthritis (HCC) ERYTHROCYTE SEDIMENTATION RATE Routine 05/10/2024 8:25 AM COPY HOLDER High risk medication use Psoriatic arthritis (HCC) SCREENING MAMMOGRAM BILATERAL W CHANDLER Schedule Routine, Read Routine (OP Routine) 01/03/2023 8:23 AM CDT Screening breast examination from Last 3 Months or Most Recently Relevant to Health Maintenance Results * eGFR (05/10/2024 8:25 AM COPY HOLDER) eGFR >90 >=60 mL/min/1. 73 m2 Comment: [...] last reviewed 2021. Blood 05/10/2024 8:25 AM COPY HOLDER 05/10/2024 7:23 PM COPY HOLDER us Kathya Perez MD LAB BLOOD ORDERABLES Final Result [facility] [address] Department [place] [address] * Differential, auto (05/10/2024 8:25 AM COPY HOLDER) Neutrophil abs 3.9 1.5 - 6.5 K/cumm Imm gran abs 0.0 0.0 - 0.1 K/cumm [facility] Lymphocyte abs 2.7 0.8 - 3.3 K/cumm [facility] Monocyte abs 0.8 0.2 - 0.8 K/cumm [facility] Eosinophil abs 0.5 0.0 - 0.5 K/cumm [facility] Basophil abs 0.1 0.0 - 0.1 K/cumm [facility] Neutrophil pct 49.2 % [facility] Comment: Interpretive Data Percent cell count reference [...] revised on 2017. Lymphocyte pct 34.0 % [facility] Comment: Interpretive Data Percent cell count reference ranges are not reported, since discordance with absolute values may lead to misinterpretation of CBC data. Current Interpretive Data was last revised on 2017. Monocyte pct 9.6 % [facility] Comment: Interpretive Data Percent cell count reference [...] revised on 2017. Blood 05/10/2024 8:25 AM COPY HOLDER 05/10/2024 7:15 PM COPY HOLDER us Kathya Perez MD LAB BLOOD ORDERABLES Final Result [facility] [address] [address] Department [place] [address] * (ABNORMAL) CBC with auto differential (05/10/2024 8:25 AM COPY HOLDER) WBC 7.8 3.8 - 9.9 K/cumm Hgb 13.5 11.9 - 15.5 g/dL [facility] Hct 42.7 35.6 - 45.5 % [facility] Plt 379 150 - 400 K/cumm [facility] MPV 9.8 9.1 - 12.3 fL [facility] RBC 4.37 3.90 - 5.20 M/cumm [facility] MCV 97.7(H) 81.3 - 96.4 fL [facility] MCH 30.9 27.1 - 33.3 pg [facility] MCHC 31.6(L) 32.3 - 35.7 g/dL [facility] RDW CV 17.7(H) 11.1 - 14.9 % [facility] CH RDW SD 62.8(H) 35.7 - 48.1 fL [facility] NRBC abs 0.02(H) 0.00 - 0.01 K/cumm [facility] Blood 05/10/2024 8:25 AM COPY HOLDER 05/10/2024 7:15 PM COPY HOLDER Kathya Perez MD LAB BLOOD ORDERABLES Final Result [facility] [address] [address] [facility] [place] [address] * Erythrocyte sedimentation rate (05/10/2024 8:25 AM COPY HOLDER) Erythrocyte sedimentation rate 9 1 - 30 mm/hr Blood 05/10/2024 8:25 AM COPY HOLDER 05/10/2024 7:15 PM COPY HOLDER Kathya Perez MD LAB BLOOD ORDERABLES Final Result Performing Organization Address [facility] Co de Phone Number [facility] [address] [address] [facility] [place] [address] * CRP (acute phase) (05/10/2024 8:25 AM COPY HOLDER) CRP <3.0 <=10.0 mg/L Blood 05/10/2024 8:25 AM COPY HOLDER 05/10/2024 7:15 PM COPY HOLDER Kathya Perez MD LAB BLOOD ORDERABLES Final Result Performing Organization Address City/[facility] Co de Phone Number [facility] [address] [address] [facility] [place] [address] * (ABNORMAL) Comprehensive metabolic panel (05/10/2024 8:25 AM COPY HOLDER) Sodium 142 135 - 145 mmol/L Potassium, [...] Units/L [facility] Blood 05/10/2024 8:25 AM COPY HOLDER 05/10/2024 7:15 PM COPY HOLDER us Kathya Perez MD LAB BLOOD ORDERABLES Final Result [facility] [address] Department [place] [address] * Screening Mammogram Bilateral W [...] age 40, based on guidelines of the [place] [employer] (ACR Practice Parameter for the Performance of Screening and Diagnostic Mammography) and [place] [employer]stetric[employer] Gynec[employer]. For women [...] Most Recently Relevant to Health Maintenance Insurance [facility] FED[employer] Member Subscriber Plan / Payer (Ef fective 2000-Present) Name:Lyn Thorpe Relation to Subscriber:Spouse Name:MARK THORPE II Date of :1965 (Home) Address: [address] [place] [address] Payer ID:[id number] (NAIC) Group ID:[id number] Type:[employer] Address: [address] [facility] Care Teams Motion Picture Photographer Relationship Specialty Start Date End Date Yuliana Marcus MD [address] [place] [address] PCP - General 07/23/16 Tyesha Genao PA [address] [place] [address] Physician [place] [facility] Family Medicine 06/20/23
--- OUTSIDE RECORDS SUMMARY | 2024-07-03 13:09 | XMS_ITS | Encounter Summary ---
Author Organization [facility] Address [facility] [place] [address] Care Team Providers Care Exchange Consultant Name Role Phone Yuliana Marcus MD Primary Care Provider [phone] Encounter Details Date Type Department Care Team (Late st Contact Info) Description 08/26/2018 Abstract [facility] CONVERSION [address] [place] [address] , Generic Conversion, Social History Tobacco Use [...] MRSA 02/11/2017 02/11/2017 02/25/2023 11:3 2 AM BEVEL OPERATOR COVID-19 Rule Out 05/05/2021 05/05/2021 05/05/2021 8:14 PM BEVEL OPERATOR COVID-19 Rule Out 10/28/2022 10/28/2022 10/28/2022 6:17 PM CDT documented as of this encounter Care Teams Exchange Consultant Relationship Specialty Start Date End Date Yuliana Marcus MD [address] [place] [address] PCP - General FAMILY PRACTICE 04/21/18 documented as of this encounter
--- OUTSIDE RECORDS SUMMARY | 2024-07-03 13:09 | XMS_ITS | Clinical Summary ---
Author Organization [facility] Address [address] [place] [address] Care Team Providers Care Tool Repair Technician Name Role Phone Yuliana Marcus MD Primary Care Provider [phone] Allergies Active Allergy Reactions Criticality Noted Date [...] = 0.6 oz pur e alcohol) socially [facility] Utilities Answer Date Recorded In the past 12 months has th e [employer], [employer], oil, or water [employer] threatened to shut off services in your [...] How often do you attend chur or mandaeism services? Never 02/25/2023 Do you belong to any clubs o r organizations such as taoism groups, unions, fraternal or athletic groups, or [...] Recorded Patient Health Questionnaire-2 Score 0 02/25/2023 [facility] - Occupational Stress Questionnaire Answer [...] place to sleep or slept in a senior living (including now)? No 02/25/2023 Comments No Sex and Gender Information Value Date Recorded Sex Assigned at Not on file Legal Sex Female 6:38 PM CDT Gender Identity Not on file Sexual Orientation Not on file Last Filed Vital Signs Vital Sign Reading Time Taken Comments Blood Pressure 107/78 05/20/2023 4:20 PM FOREIGN LANGUAGE TEACHER Pulse 97 05/20/2023 4:20 PM FOREIGN LANGUAGE TEACHER Temperature 36.4 C (97.5 F) 05/20/2023 4:20 PM FOREIGN LANGUAGE TEACHER Respiratory Rate 18 05/20/2023 4:20 PM FOREIGN LANGUAGE TEACHER Oxygen Saturation 96% 05/20/2023 4:20 PM FOREIGN LANGUAGE TEACHER Inhaled Oxygen Concentration - - Weight 81.6 kg (180 lb) 05/09/2023 8:51 AM FOREIGN LANGUAGE TEACHER Height 157.5 cm (5' 2 ) 03/25/2023 12:00 PM FOREIGN LANGUAGE TEACHER Body Mass Index 32.92 03/25/2023 12:00 PM FOREIGN LANGUAGE TEACHER Plan of Treatment Health Maintenance Due Date [...] this topic Medical Devices Implanted Type Area Coating Engineer Device Identifier Shelf Expiration Date Model / Serial / Lot Stent Ureteral 6fr 26cm Pigtl Crv Taper Tip Bldr Mrk - [id number] Implanted:Qty: 1 on 05/20/2023 by Matt Rowell MD at [facility] Stent Left: Ureter [employer] [id number] 12/21/2025 [id number] / / [id number] Stent Filform Double Pigtail Cook 6fr X 22cm - Sn/A Implanted:Qty: 1 on 04/21/2018 by Parviz Conroy MD at [facility] Right: Urethra [employer] - [employer] 02/14/2021 [id number] / N/A / [id number] Stent Filform Double Pigtail Cook 6fr X 22cm - Sna Implanted:Qty: 1 on 05/05/2018 by Vipin Jimenez DO at [facility] Right: Ureter [employer] 02/14/2021 [id number] / NA / [id number] Stent Filform Double Pigtail Cook 6fr X 22cm - [id number] Implanted:Qty: 1 on 05/05/2018 by Vipin Jimenez DO at [facility] Left: Ureter [employer] 11/17/2020 [id number] / / [id number] Explanted Type Area Coating Engineer Device Identifier Shelf Expiration Date Model / Serial / Lot Stent Ureteral Pigtail 6fr 24cm Crv Taper Tip - [id number] Implanted:Qty : 1 on 02/25/2023 by Matt Rowell MD at [facility] Explanted:Qty : 1 on 03/25/2023 at [facility] Stent Right: Ureter [employer] [id number] 09/05/2025 [id number] Insurance [facility] [employer] [facility] Advance Directives * Full Code (Latest Code Status on File) Date Activated Date Inactivated Comments 02/25/2023 12:20 PM 02/26/2023 1:22 PM Care Teams Tool Repair Technician Relationship Specialty Start Date End Date Yuliana Marcus MD [address] [place] [address] PCP - General FAMILY PRACTICE 04/21/18
--- OUTSIDE RECORDS SUMMARY | 2024-07-03 13:09 | XMS_ITS | Encounter Summary ---
Author Organization [facility] Address [facility] [place] [address] Care Team Providers Care Board Filler Name Role Phone Yuliana Marcus MD Primary Care Provider [phone] Encounter Details Date Type Department Care Team (Late st Contact Info) Description 05/16/2023 Prep for Procedure [facility] [place] [address] Matt Rowell MD [address] [facility] [place] [address] Social History Tobacco Use Types Packs/Day Years Used Date Smoking Tobacco: Never Smokeless Tobacco: Never Alcohol Use Standard Drinks/Week Comments Yes 0 (1 standard drink = 0.6 oz pur e alcohol) socially [facility] Utilities Answer Date Recorded In the past 12 months has [facility] TSB, gas, oil, or water [place] threatened to shut off services in your [...] often do you attend chur ch or buddhist services? Never 02/25/2023 Do you belong to any clubs o r organizations such as yarsanism groups, unions, fraternal or athletic groups, or [...] Recorded Patient Health Questionnaire-2 Score 0 02/25/2023 [facility] - Occupational Stress Questionnaire Answer Date [...] No 02/25/2023 Housing Stability Vital Sign Answer [place] e Recorded In the last 12 months, [...] place to sleep or slept in a alf (including now)? No 02/25/2023 Comments No Sex [...] Assessment Author Status No 02/25/2023 11:42 AM COMMUNITY ENGAGEMENT REPRESENTATIVE Karen De Jesus R N Active documented as of this encounter Mental Status * Because of a physical, mental, or emotional condition, do you have serious difficulty concentrating, remembering, or making decisions? Answer Entry Date Author Status No 02/25/2023 11:42 AM COMMUNITY ENGAGEMENT REPRESENTATIVE Karen De Jesus R N Active documented in this encounter Plan of Treatment Not on file documented as of this encounter Results * (ABNORMAL) URINALYSIS (05/09/2023 11:03 AM COMMUNITY ENGAGEMENT REPRESENTATIVE) COLOR (U) YELLOW 05/09/2023 11:49 AM [facility] TRANSPARENCY CLEAR 05/09/2023 11:49 AM [facility] SPECIFIC GRAVITY (U) 1.010 1.000 - 1.030 05/09/2023 11:49 AM [facility] U PH 7.0 5.0 - 9.0 05/09/2023 11:49 AM [facility] LEUKOCYTES (U) NEGATIVE NEGATIVE 05/09/2023 11:49 AM [facility] NITRITES NEGATIVE NEGATIVE 05/09/2023 11:49 AM [facility] PROTEIN RANDOM (U) NEGATIVE NEGATIVE 05/09/2023 11:49 AM [facility] GLUCOSE (U) NEGATIVE NEGATIVE 05/09/2023 11:49 AM [facility] KETONES MG/DL (U) NEGATIVE NEGATIVE 05/09/2023 11:49 AM [facility] BILIRUBIN (U) NEGATIVE NEGATIVE 05/09/2023 11:49 AM [facility] BLOOD (U) TRACE(A) NEGATIVE 05/09/2023 11:49 AM [facility] CULTURE & SENSITIVITY INDICATED? CULTURE IS NOT INDICATED 05/09/2023 11:49 AM [facility] URINE SPECIMEN OBTAINED BY CLEAN CATCH PROCEDURE / Unknown 05/09/2023 11:03 AM COMMUNITY ENGAGEMENT REPRESENTATIVE Matt Rowell MD URINE ORDERABLES Final Re sult Performing Organization Address [facility] de Phone Number [facility] [address] [place] [address], [place] [phone] * CULTURE URINE (05/09/2023 10:31 AM COMMUNITY ENGAGEMENT REPRESENTATIVE) SPEC DESCRIPTION URINE CLEAN CATCH 05/09/2023 10:31 AM COMMUNITY ENGAGEMENT REPRESENTATIVE [facility] SPECIAL REQUESTS NO SPECIAL REQUEST 05/09/2023 10:31 AM COMMUNITY ENGAGEMENT REPRESENTATIVE [facility] CULTURE RESULT NO GROWTH 2 DAYS 05/11/2023 8:06 AM COMMUNITY ENGAGEMENT REPRESENTATIVE [facility] URINE SPECIMEN OBTAINED BY CLEAN CATCH PROCEDURE / Unknown 05/09/2023 10:31 AM COMMUNITY ENGAGEMENT REPRESENTATIVE 05/09/2023 11:06 AM COMMUNITY ENGAGEMENT REPRESENTATIVE Matt Rowell MD MICROBIOLOGY - GENERAL OR DERABLES Final Result Performing Organization Address [facility] de Phone Number [facility] [address] [place] [address], [place] [phone] [facility] [address] [place] [address], [place] [phone] documented in this encounter Visit Diagnoses Diagnosis Nephrolithiasis- Primary Calculus of kidney documented in this encounter Care Teams Board Filler Relationship Specialty Start Date End Date Yuliana Marcus MD [address] [place] [phone] PCP - General FAMILY PRACTICE 04/21/18 documented as of this encounter
--- OUTSIDE RECORDS SUMMARY | 2024-07-03 13:09 | XMS_ITS | Encounter Summary ---
Author Organization [facility] Address [address] [place] [address] Phone Care Team Providers Care Charter Bus Driver Name Role Phone Yuliana Marcus MD Primary Care Provider Tyesha Genao Unavailable [phone] Encounter Details Date Type Department Care Team (Late st Contact Info) Description 05/11/2024 Results Follow-Up [facility] Rheumatology [address] [facility] Advanced Medicine 5th [place] [address] [place] [phone] Kathya Perez MD [address] [place] [address] Social History Tobacco Use Types [...] often do you attend chur ch or samaritan services? Never 11/22/2023 Do you belong to any clubs o r organizations such as mandaeism groups, unions, fraternal or athletic groups, or [...] Recorded Patient Health Questionnaire-2 Score 0 11/22/2023 [facility] - Occupational [...] place to sleep or slept in a fdc (including now)? No 07/18/2023 Comments No Sex and Gender Information Value Date Recorded Sex Assigned at Not on file Legal Sex Female 12:26 AM AUTO BODY TECHNICIAN Gender Identity Not on file Sexual Orientation Not on file documented as of this encounter Plan of Treatment Not on file documented as of this encounter Visit Diagnoses Not on filedocumented in this encounter Care Teams Charter Bus Driver Relationship Specialty Start Date End Date Yuliana Marcus MD [address] [place] [place] [id number] PCP - General 07/23/16 Tyesha Genao PA [address] [place] [address] Physician Correspondence Specialist Family Medicine 06/20/23 documented as of this encounter
--- NOTE | 2024-07-03 13:27 | ED_ITS ---
HPI - Abdominal Pain General Chief Complaint: Abdominal Pain Stated Complaint: abdominal pain Time Seen by Provider: 07/03/24 11:33 Source: patient Mode of arrival: ambulatory Limitations: no limitations History of Present Illness HPI narrative: patient is a 54-year-old female with significant past medical history that presents today for abdominal pain. Patient was brought in by EMS for her severe abdominal pain. In the EMS truck they gave her fentanyl and also give her Zofran for the nausea and the fentanyl was for the pain. She was requesting very strong pain medications. She says that she has had abdominal pain with nausea vomiting in the past but never this bad. She denies any diarrhea or any constipation. MD elicited complaint: abdominal pain Pertinent past history: diverticulitis Onset (ago): hour(s) Pain Consistency: constant Location: diffuse Severity: severe Pain scale (0-10): 8 Quality: cramping and stabbing Exacerbating factors: eating, vomiting and movement Relieving factors: nothing Associated symptoms: nausea, vomiting and chills Related Data Patient : No Home Medications ?Medication ?Instructions ?Recorded ?Confirmed ?Last Taken ?Type atorvastatin 10 mg tablet 10 mg PO DAILY 10/24/22 06/09/23 10/23/22 History celecoxib 100 mg capsule 100 mg PO BID 10/24/22 06/09/23 10/24/22 History dulaglutide 1.5 mg/0.5 mL 1.5 mg subcut WEEKLY 10/24/22 06/09/23 10/23/22 History subcutaneous pen injector (Trulicity) ixekizumab 80 mg/mL subcutaneous 80 mg subcut MONTHLY 10/24/22 06/09/23 10/23/22 History auto-injector (Taltz Autoinjector) levothyroxine 50 mcg tablet 50 mcg PO EVERY OTHER DAY 10/24/22 06/09/23 10/23/22 History (Synthroid) levothyroxine 75 mcg tablet 75 mcg PO EVERY OTHER DAY 10/24/22 06/09/23 10/24/22 History (Synthroid) Calcium + Vitamin D 600 mg PO DAILY 10/25/22 06/09/23 10/23/22 History esomeprazole magnesium 40 mg 40 mg PO HS 10/25/22 06/09/23 10/23/22 History capsule,delayed release magnesium oxide-magnesium amino 1 cap PO DAILY 10/25/22 06/09/23 10/23/22 History acid chelate 300 mg capsule fluoxetine 40 mg capsule 40 mg PO HS 03/09/23 06/09/23 Unknown History alprazolam 1 mg tablet 0.5 mg PO BID PRN Anxiety 06/09/23 06/09/23 Unknown History Allergies Allergy/AdvReac Type Severity Reaction Status Date / Time metformin AdvReac Vomiting Verified 07/03/24 11:38 morphine AdvReac Nausea and Verified 07/03/24 11:38 Vomiting Review of Systems 2 Review of Systems: All systems reviewed & are unremarkable except as noted in HPI and below Constitutional: Constitutional: Reports as per HPI Eyes: Eyes: Reports no additional eye complaints ENT: Reports system reviewed and no additional complaints, except as documented Cardiovascular: Cardiovascular: Reports no additional cardiovascular complaints Respiratory: Respiratory: Reports no additional respiratory complaints Gastrointestinal: Gastrointestinal: Reports as per HPI, Reports abdominal pain, Reports nausea and Reports vomiting Genitourinary: Genitourinary: Reports no additional female genitourinary complaints Musculoskeletal: Musculoskeletal: Reports no additional musculoskeletal complaints Integumentary/Breasts: Skin/Breast: Reports system reviewed and no additional complaints, except as docu Neurologic: Reports system reviewed and no additional complaints, except as documented Psychiatric: Psychiatric: Reports no additional psychiatric complaints Endocrine: Endocrine: Reports no additional endocrine complaints Hematologic/Lymphatic: Hematologic/Lymphatic: Reports no additional hematologic/lymphatic complaints Allergic/Immunologic: Allergic/Immunologic: Reports no additional allergic/immunologic complaints PMFSH Past Medical History Medical History Hypothyroidism Depression Type 2 diabetes mellitus The patient reports that her A1c was 5.7 at her most recent doctor visit Osteoarthritis Obesity Insomnia Anxiety Psoriasis Surgical History Surgical History 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 History of endometrial ablation Family History Family History Sibling Myocardial infarction Diabetes mellitus Father Cerebrovascular accident Diabetes mellitus Mother Cerebrovascular accident Grandparent Diabetes mellitus Social History Social History Smoking status: Never smoker Alcohol intake: current Drinks per week: 1 Substance use: current Substance use type: marijuana Lack of Transportation: No Lack of Food: Never True Current Housing: I Have Housing Concerned About Future Housing: No Difficulty Paying Gas/Electric Bills: No Difficulty Paying for Meds: No Currently Unemployed: No Education: Bachelor's Degree Difficulty w/ Childcare or Family Care: No Spiritual care concerns: No Exam 2 Const: General: healthy appearing Nutritional Appearance: well nourished Orientation/consciousness: patient oriented x3 HENMT: Head: normal to inspection Ears: external ears normal F shanika/Nose/Sinus: Normal external nose present Face and sinus: normal facial exam Mouth: Yes Normal oral and palatal mucosa present Eyes: Conjunctivae: conjunctivae normal Pupils: Equal, round and reactive pupils present EOM: EOMs intact bilaterally Neck: Neck: normal visual inspection Chest: Chest palpation & inspection: normal inspection of the chest Resp: Effort & Inspection: normal respiratory effort Auscultation: clear to auscultation bilaterally Cardio: Rate: regular rate Rhythm: regular rhythm GI: GI Palp: Yes Tenderness to palpation present (GI) and Yes Guarding due to palpation present (GI) Auscultation: Hyperactive bowel sounds present : General: Yes bladder normal to palpation Back/Spine/Pelvis: Back: no CVA tenderness Skin: General skin exam: normal color Rashes: no rashes Wounds: no wounds Neuro: General: patient oriented x3 Cranial nerves: Yes Nystagmus not present Speech: normal speech Extrem: General: normal to inspection Psych: Mental Status: mental status grossly normal Affect: normal affect Attitude: cooperative Course Vital Signs Vital signs: Vital Signs Oxygen Delivery Room Air 07/03/24 11:27 Temperature 97.5 F L 07/03/24 11:31 Pulse Rate 96 07/03/24 11:31 Respiratory Rate 18 07/03/24 11:31 Blood Pressure 101/75 07/03/24 12:49 Pulse Oximetry 95 07/03/24 12:30 Oxygen Delivery Room Air 07/03/24 11:31 MDM - Abdominal Pain MDM Narrative Medical decision making narrative: Patient has had history of some abdominal pain before not this bad. She most likely has a history of diverticulosis and bowel and a flare-up of diverticulitis in the past. Because of the severity of the abdominal pain will do a CT the abdomen and pelvis with contrast. She already got Glenvil all and Zofran in the EMS so will not give her any more pain medication. However she has very rare anxious and still is nauseated so give her some Compazine and some Ativan. Will do a full blood panel and if her a L of fluids as well. Differential Diagnosis Differential diagnosis: Likely abdominal pain, diverticulitis and other (colitis ) Medical Records Attestation: I reviewed the patient's medical records. Lab Data Attestation: I reviewed the patient's lab results. 07/03/24 11:47 07/03/24 11:47 Labs: Lab Results 07/03/24 07/03/24 Range/Units 11:34 11:47 WBC 14.9 H (4.8-10.8) K/mm3 RBC 4.65 (4.20-5.40) M/mm3 Hgb 14.8 (12.0-15.0) g/dL Hct 42.3 (35.0-49.0) % MCV 91.0 (78.0-102.0) fL MCH 31.8 H (27.0-31.0) pg MCHC 35.0 (32-36) g/dL RDW 16.0 H (11.6-14.4) % Plt Count 318 (150-420) K/mm3 MPV 9.4 (9.2-11.8) fl Immature Gran % (Auto) Not Reportable Neut % (Auto) Not Reportable Lymph % (Auto) Not Reportable Rowan % (Auto) Not Reportable Eos % (Auto) Not Reportable Baso % (Auto) Not Reportable Lymph # (Auto) Not Reportable Rowan # (Auto) Not Reportable Eos # (Auto) Not Reportable Baso # (Auto) Not Reportable Abs Immat Gran (auto) Not Reportable Absolute Neuts (auto) Not Reportable Absolute Nucleated RBC Not Reportable Total Counted 100 Neutrophils % (Manual) 90 H (46-73) % Band Neutrophils % 0 (0-6) % Lymphocytes % (Manual) 8 L (18-44) % Monocytes % (Manual) 2 L (3-9) % Nucleated RBC % Not Reportable Abs Neuts (Manual) 13.41 H (1.7-7.2) K/mm3 Abs Lymphs (Manual) 1.19 (1.1-4.5) K/mm3 Abs Monocytes (Manual) 0.29 (0.1-0.90) K/mm3 Platelet Estimate Adequate (Adequate) Schistocytes Not Reportable Sodium 137 (136-145) mmol/L Potassium 4.1 (3.5-5.1) mmol/L Chloride 100 (98-108) mmol/L Carbon Dioxide 21 (21-32) mmol/L Anion Gap 16 H (4-12) mmol/L BUN 21 H (7-18) mg/dL Creatinine 1.07 H (0.55-1.02) mg/dL Estim Creat Clear Calc 48 ml/min Estimated GFR 53 L (59 - ) Glucose 195 H (70-99) mg/dL Calculated Osmolality 292 (285-295) mOsm/kg Lactic Acid 6.7 H (0.4-2.0) mmol/L Calcium 9.5 (8.5-10.1) mg/dL Total Bilirubin 1.2 H (0.00-1.00) mg/dL AST 79 H (15-37) U/L ALT 95 H (14-59) U/L Alkaline Phosphatase 95 (46-116) U/L Total Protein 7.9 (6.4-8.2) g/dL Albumin 3.9 (3.4-5.0) g/dL Urine Color Light yellow (Yellow) Urine Appearance Clear (Clear) Urine pH 6.0 (5.0-8.0) Ur Specific Riley 1.020 (1.010-1.020) Urine Protein Negative (Negative) Urine Glucose (UA) 1+ H (Negative) Urine Ketones 2+ H (Negative) Ur Blood (Man) Trace-intact H (Negative) Urine Nitrate Negative (Negative) Urine Bilirubin Negative (Negative) Urine Urobilinogen 0.2 (0.2-1.0) mg/dL Leukocyte Esterase Rfl Negative (Negative) RENA/UL Imaging Data Attestation: I personally reviewed and interpreted this imaging study as follows: Radiologist's impression: ITS Impressions Abdomen/Pelvis CT 07/03/24 12:54 IMPRESSION: 1. Mild colonic wall thickening centered at the splenic flexure the colon suspicious for multifocal colitis which could be infectious, inflammatory or ischemic (including hypotensive) in etiology. 2. Bilateral nonobstructing nephrolithiasis. 3. Mild diverticulosis. 4. Small sliding-type hiatal hernia. 5. Suggestion of normal anatomic variant septate uterus. Discharge Plan Discharge Clinical Impression: Colitis, Abdominal pain Patient Disposition: Home Condition: Stable Instructions: Antibiotic Form, Abdominal Pain (ED) Patient Language: [place] Islander Prescriptions: New metronidazole [Flagyl] 375 mg capsule 375 mg PO TID Qty: 21 0RF ciprofloxacin HCl 500 mg tablet 500 mg PO Q12H Qty: 14 0RF No Action atorvastatin 10 mg tablet 10 mg PO DAILY levothyroxine [Synthroid] 75 mcg tablet 75 mcg PO EVERY OTHER DAY levothyroxine [Synthroid] 50 mcg tablet 50 mcg PO EVERY OTHER DAY Rx Instructions: Alternate daily with 50mcg and 75mcg celecoxib 100 mg capsule 100 mg PO BID Trulicity 1.5 mg/0.5 mL pen injector 1.5 mg SUBCUT WEEKLY Rx Instructions: Patient takes on Saturdays Taltz Autoinjector 80 mg/mL auto-injector 80 mg SUBCUT MONTHLY Rx Instructions: Takes on of the month esomeprazole magnesium 40 mg capsule,delayed release(DR/EC) 40 mg PO HS magnesium oxide-Mg AA chelate 300 mg Capsule 1 cap PO DAILY Calcium + Vitamin D 600 mg PO DAILY metoprolol succinate [Toprol XL] 25 mg Tablet Extended Release 24 Hr 25 mg PO QAM Qty: 30 0RF fluoxetine 40 mg capsule 40 mg PO HS alprazolam 1 mg tablet 0.5 mg PO BID PRN (Reason: Anxiety) Follow-up/Referrals: Yuliana Marcus MD [Primary Care Provider] - Time of Disposition: 13:37
[2024-07-03] MEDS: CIPROFLOXACIN 500 MG TAB PO (13:30)
[2024-07-03] MEDS: metroNIDAZOLE 250 MG TABLET 500 MG PO (13:34)
--- NOTE | 2024-07-03 13:39 | PC.NURSE ---
awoke pt to administer medications, she reports pain has improved. iv site repositioned and is flowing better at this time, advised pt to straighten her arm as best as she could. family is at bedside. will continue to monitor.
[2024-07-03 13:49] LABS: Reflex Lactic Acid Yes or No Add Lactic
[2024-07-03 14:20] LABS: Lactic Acid 2.7 mmol/L (0.4-2.0)
--- NOTE | 2024-07-03 14:42 | PC.NURSE ---
PT AMBULATED TO WITHOUT DIFFICULTY, UPON RETURN SHE COMPLAINS HER ARM IS SWELLING. NOTED TO HAVE IV INFILTRATION TO RT LOWER ARM, WITH SWELLING FROM WRIST TO MID UPPER ARM, SKIN IS TAUGHT. IV SITE DC AND WARM COMPRESSES APPLIED. ERP IS AWARE. FAMILY REMAINS AT BEDSIDE. WILL CONTINUE TO MONITOR.
--- NOTE | 2024-07-03 14:56 | PC.NURSE ---
SWELLING HAS GONE DOWN WITH WARM COMPRESS. ANOTHER COMPRESS APPLIED. WILL CONTINUE TO MONITOR.
== END 2024-07-03 15:20 | disposition home or self-care (01) ==
PROVIDERS: Emergency Provider Family Medicine; PCP Family Medicine
DX: K52.9 Noninfective gastroenteritis and colitis, unspecified (principal); F12.90 Cannabis use, unspecified, uncomplicated
CPT/HCPCS: 36415; 74177; 80053; 81003; 83605; 85025; 96361; 96374; 96375; 99284; A9270; J0780; J2060; J7030; Q9967

== ENCOUNTER 2024-10-01 08:09 | Outpatient (CLI) | payer OTHER, BC, SELFPAY ==
--- NOTE | ~2024-10-01 | US_ITS ---
Limited Abdominal Sonogram: Real-time sonographic imaging of the right upper quadrant was performed. Clinical History: Right upper quadrant pain Findings: The liver appears normal with no evidence of mass lesion or bile duct dilatation. Main por syed vein demonstrates normal direction of flow. The gallbladder is well distended, and appears normal with no evidence of gallstone or wall thickening. The common bile duct measures 3 mm. The visualize d pancreas, aorta, and IVC are unremarkable. Impression: No significant abnormality seen. Reviewed, dictated and finalized at location M. Impression: No significant abnormality seen.
== END 2024-10-01 08:10 | disposition home or self-care (01) ==
LOC: GOSHIMG 08:10
DX: R10.11 Right upper quadrant pain (principal)
CPT/HCPCS: 76705